=== PATIENT | male | born 1940 | race Caucasian/White ===

== ENCOUNTER 2017-05-22 20:24 | Inpatient (IN) | payer MEDICARE, OTHER ==
[2017-05-23] MEDS: SODIUM CHLORIDE 0.9% 1L BAG IV* (01:35)
[2017-05-23 01:37] LABS: ADD MAN DIFF? NO
[2017-05-23 01:38] LABS: BASOPHILS % 0.2 % (0.0-2.0); EOSINOPHILS # 0.4 10^3/ul (0.0-0.5); EOSINOPHILS % 3.7 % (0.0-7.0); HEMATOCRIT 31.8 % (42.0-52.0); HEMOGLOBIN 9.6 g/dl (14.0-18.0); LYMPHOCYTES # 1.1 10^3/ul (0.8-2.9); LYMPHOCYTES % 10.3 % (15.0-51.0); MEAN CORPUSCULAR HEMOGLOBIN 24.2 pg (29.0-33.0); MEAN CORPUSCULAR HGB CONC 30.2 g/dl (32.0-37.0); MEAN CORPUSCULAR VOLUME 80.3 fl (82.0-101.0); MEAN PLATELET VOLUME 9.9 fl (7.4-10.4); MONOCYTE # 0.8 10^3/ul (0.3-0.9); MONOCYTES % 7.6 % (0.0-11.0); NEUTROPHIL # 8.1 10^3/ul (1.6-7.5); NEUTROPHILS % 77.8 % (39.0-77.0); PLATELET COUNT 213 10^3/UL (140-415); RED BLOOD COUNT 3.96 10^6/ul (4.70-6.10); RED CELL DISTRIBUTION WIDTH 17.8 % (11.5-14.5)
[2017-05-23 01:38] LABS: WHITE BLOOD COUNT 10.5 10^3/ul (4.8-10.8)
[2017-05-23 02:06] LABS: INR 1.04; PROTIME 13.7 Sec (11.9-14.9); PT RATIO 1.1
[2017-05-23 02:07] LABS: PARTIAL THROMBOPLASTIN TIME 30.9 Sec (25.0-35.0)
[2017-05-23 02:18] LABS: LACTIC ACID 1.4 mmol/L (0.5-2.0)
[2017-05-23 02:20] LABS: ALANINE AMINOTRANSFERASE 25 IU/L (13-69); ALBUMIN 3.4 g/dl (3.3-4.9); ALBUMIN/GLOBULIN RATIO 1.03; ALKALINE PHOSPHATASE 61 IU/L (42-121); ANION GAP 15 (8-16); ASPARTATE AMINO TRANSFERASE 20 IU/L (15-46); BLOOD UREA NITROGEN 14 mg/dl (7-20); CALCIUM 8.8 mg/dl (8.4-10.2); CARBON DIOXIDE 23 mmol/L (21-31); CHLORIDE 108 mmol/L (97-110); CREATININE 1.59 mg/dl (0.61-1.24); GLUCOSE 102 mg/dl (70-220); POTASSIUM 3.3 mmol/L (3.5-5.1); SODIUM 143 mmol/L (135-144); TOTAL PROTEIN 6.7 g/dl (6.1-8.1)
[2017-05-23 02:31] LABS: TROPONIN-I 0.084 ng/ml (0.00-0.12)
[2017-05-23 03:25] LABS: ADD UMIC NO; UR ASCORBIC ACID NEGATIVE (NEGATIVE); UR BILIRUBIN (Dip) NEGATIVE (NEGATIVE); UR BLOOD (Dip) NEGATIVE (NEGATIVE); UR CLARITY CLEAR (CLEAR); UR COLOR YELLOW (YELLOW); UR GLUCOSE (Dip) NEGATIVE (NEGATIVE); UR KETONES (Dip) NEGATIVE (NEGATIVE); UR LEUKOCYTE ESTERASE (Dip) NEGATIVE Leu/ul (NEGATIVE); UR NITRITE (Dip) NEGATIVE (NEGATIVE); UR SPECIFIC GRAVITY (Dip) 1.006 (1.003-1.030); UR TOTAL PROTEIN (Dip) NEGATIVE (NEGATIVE); UR UROBILINOGEN (Dip) NEGATIVE (NEGATIVE)
[2017-05-23] MEDS: morphine 4 MG/ML VIAL IV (03:30)
[2017-05-23] MEDS: ONDANSETRON 4 MG INJ IV (03:30)
[2017-05-23] MEDS ORDERED: ACETAMINOPHEN 325 MG TAB PO (06:00)
[2017-05-23] MEDS ORDERED: ONDANSETRON 4 MG INJ IV (06:00)
[2017-05-23 06:27] LABS: LACTIC ACID 0.9 mmol/L (0.5-2.0)
[2017-05-23] MEDS: metroNIDAZOLE 500 MG TAB PO (07:12)
[2017-05-23 07:51] LABS: LACTIC ACID 0.8 mmol/L (0.5-2.0)
[2017-05-23] MEDS: SOD CHLORIDE 0.9% 1,000 ML IV ×2 (08:36→20:22)
[2017-05-23] MEDS ORDERED: GLUCOSE GEL 15 GRAM TUBE PO ×2 (10:30)
[2017-05-23] MEDS ORDERED: GLUCAGON 1 MG INJ IM (10:30)
[2017-05-23] MEDS ORDERED: DEXTROSE 50% 50 ML SYRINGE IV ×2 (10:30)
[2017-05-23] MEDS ORDERED: GLUCOSE GEL 15 GRAM TUBE BUCCAL (10:30)
[2017-05-23] MEDS: POTASSIUM CHLORIDE (SR) 20 MEQ TAB PO (10:59)
[2017-05-23 11:53] LABS: CHOL/HDL RATIO 5.2 RATIO; HDL CHOLESTEROL 21 mg/dl (31-75); LDL CHOLESTEROL,CALCULATED 69 mg/dl; TRIGLYCERIDES 106 mg/dl (0-149)
[2017-05-23 11:53] LABS: CHOLESTEROL 111 mg/dl (100-200)
[2017-05-23 12:09] LABS: FREE T4 (FREE THYROXINE) 0.85 ng/dl (0.85-1.93)
[2017-05-23] MEDS: PANTOPRAZOLE (EC) 40 MG TAB PO (12:09)
[2017-05-23] MEDS: INSULIN ASPART [NOVOLOG] 3 ML PEN SC ×3 (12:09→20:22)
[2017-05-23] MEDS: VANCOMYCIN HCL 250 MG/5ML POSYG PO ×2 (12:25→17:52)
[2017-05-23 15:04] LABS: MAGNESIUM 1.8 mg/dl (1.7-2.5)
[2017-05-23 15:12] LABS: B-TYPE NATRIURETIC PEPTIDE 2040 PG/ML (0-450)
[2017-05-23 19:29] LABS: CREATINE KINASE 63 IU/L (23-200)
[2017-05-23 19:42] LABS: CK INDEX 4.5; TROPONIN-I 0.072 ng/ml (0.00-0.12)
[2017-05-23 19:49] LABS: CK-MB 2.84 ng/ml (0.0-2.4)
[2017-05-24] MEDS: VANCOMYCIN HCL 250 MG/5ML POSYG PO ×4 (00:21→17:46)
[2017-05-24 01:32] LABS: CREATINE KINASE 53 IU/L (23-200)
[2017-05-24 01:45] LABS: CK INDEX 4.4; TROPONIN-I 0.082 ng/ml (0.00-0.12)
[2017-05-24 01:51] LABS: CK-MB 2.34 ng/ml (0.0-2.4)
[2017-05-24] MEDS: ACCU-CHEK XX (02:00)
[2017-05-24] MEDS: PANTOPRAZOLE (EC) 40 MG TAB PO (06:17)
[2017-05-24] MEDS: INSULIN ASPART [NOVOLOG] 3 ML PEN SC ×4 (08:00→20:57)
[2017-05-24 08:22] LABS: CREATINE KINASE 49 IU/L (23-200)
[2017-05-24 08:22] LABS: MAGNESIUM 1.8 mg/dl (1.7-2.5)
[2017-05-24 08:28] LABS: ALANINE AMINOTRANSFERASE 27 IU/L (13-69); ALBUMIN 2.8 g/dl (3.3-4.9); ALBUMIN/GLOBULIN RATIO 0.93; ALKALINE PHOSPHATASE 60 IU/L (42-121); ANION GAP 11 (8-16); ASPARTATE AMINO TRANSFERASE 15 IU/L (15-46); BLOOD UREA NITROGEN 12 mg/dl (7-20); CALCIUM 8.4 mg/dl (8.4-10.2); CARBON DIOXIDE 20 mmol/L (21-31); CHLORIDE 112 mmol/L (97-110); CREATININE 1.38 mg/dl (0.61-1.24); GLUCOSE 81 mg/dl (70-220); POTASSIUM 3.9 mmol/L (3.5-5.1); SODIUM 139 mmol/L (135-144); TOTAL PROTEIN 5.8 g/dl (6.1-8.1)
[2017-05-24 08:34] LABS: CK INDEX 4.9; TROPONIN-I 0.069 ng/ml (0.00-0.12)
[2017-05-24 08:50] LABS: CK-MB 2.42 ng/ml (0.0-2.4)
[2017-05-24] MEDS: METOPROLOL (XL) 25 MG TAB PO (09:21)
[2017-05-24 09:24] LABS: CHOLESTEROL 108 mg/dl (100-200)
[2017-05-24 09:24] LABS: CHOL/HDL RATIO 5.4 RATIO; HDL CHOLESTEROL 20 mg/dl (31-75); LDL CHOLESTEROL,CALCULATED 66 mg/dl; TRIGLYCERIDES 109 mg/dl (0-149)
[2017-05-24] MEDS: SOD CHLORIDE 0.9% 1,000 ML IV (13:01)
[2017-05-24] MEDS: MAGNESIUM SULFATE 2 GM/50 ML 50 ML IVPB (17:46)
[2017-05-24] MEDS: SOD CHLORIDE 0.45% 1,000 ML IV (17:46)
[2017-05-24] MEDS: CHOLESTYRAMINE 4 GM PACKET PO (17:46)
[2017-05-24] MEDS: L ACIDOPHIL/B LACTIS/B LONGUM CAPSULE PO (20:55)
[2017-05-25] MEDS: VANCOMYCIN HCL 250 MG/5ML POSYG PO ×4 (00:20→17:06)
[2017-05-25] MEDS: ACCU-CHEK XX (02:00)
[2017-05-25] MEDS: PANTOPRAZOLE (EC) 40 MG TAB PO (05:21)
[2017-05-25] MEDS: LEVOTHYROXINE 150 MCG TAB PO (06:35)
[2017-05-25] MEDS: INSULIN ASPART [NOVOLOG] 3 ML PEN SC ×4 (08:00→21:00)
[2017-05-25] MEDS: L ACIDOPHIL/B LACTIS/B LONGUM CAPSULE PO ×2 (08:14→21:24)
[2017-05-25] MEDS: CHOLESTYRAMINE 4 GM PACKET PO (08:14)
[2017-05-25] MEDS: METOPROLOL (XL) 25 MG TAB PO (08:14)
[2017-05-25 08:31] LABS: ADD MAN DIFF? NO
[2017-05-25 08:33] LABS: BASOPHILS % 0.3 % (0.0-2.0); EOSINOPHILS # 0.1 10^3/ul (0.0-0.5); EOSINOPHILS % 1.6 % (0.0-7.0); HEMATOCRIT 29.6 % (42.0-52.0); HEMOGLOBIN 9.2 g/dl (14.0-18.0); LYMPHOCYTES # 0.8 10^3/ul (0.8-2.9); LYMPHOCYTES % 12.6 % (15.0-51.0); MEAN CORPUSCULAR HEMOGLOBIN 24.6 pg (29.0-33.0); MEAN CORPUSCULAR HGB CONC 31.1 g/dl (32.0-37.0); MEAN CORPUSCULAR VOLUME 79.1 fl (82.0-101.0); MEAN PLATELET VOLUME 9.7 fl (7.4-10.4); MONOCYTE # 0.5 10^3/ul (0.3-0.9); MONOCYTES % 7.3 % (0.0-11.0); NEUTROPHIL # 4.9 10^3/ul (1.6-7.5); NEUTROPHILS % 77.7 % (39.0-77.0); PLATELET COUNT 179 10^3/UL (140-415); RED BLOOD COUNT 3.74 10^6/ul (4.70-6.10); RED CELL DISTRIBUTION WIDTH 17.5 % (11.5-14.5)
[2017-05-25 08:33] LABS: WHITE BLOOD COUNT 6.3 10^3/ul (4.8-10.8)
[2017-05-25 08:55] LABS: ANION GAP 11 (8-16); BLOOD UREA NITROGEN 14 mg/dl (7-20); CALCIUM 8.7 mg/dl (8.4-10.2); CARBON DIOXIDE 22 mmol/L (21-31); CHLORIDE 109 mmol/L (97-110); CREATININE 1.41 mg/dl (0.61-1.24); GLUCOSE 94 mg/dl (70-220); POTASSIUM 3.8 mmol/L (3.5-5.1); SODIUM 138 mmol/L (135-144)
[2017-05-25] MEDS: REGADENOSON 0.4 MG/5 ML SYG (10:14)
[2017-05-25] MEDS: SOD CHLORIDE 0.45% 1,000 ML IV ×2 (14:00→21:26)
[2017-05-25] MEDS: BALSAM PERU/CASTOR OIL 60 GM TUBE TOP (15:29)
[2017-05-25] MEDS: LEVOFLOXACIN 500 MG TAB PO (17:06)
[2017-05-25] MEDS ORDERED: MUPIROCIN 2% 22 GM OINT TOP (21:00)
[2017-05-25] MEDS: MUPIROCIN 2% 22 GM OINT TOP (21:24)
[2017-05-26] MEDS: VANCOMYCIN HCL 250 MG/5ML POSYG PO ×4 (00:58→17:20)
[2017-05-26] MEDS: ACCU-CHEK XX (02:00)
[2017-05-26] MEDS: LEVOFLOXACIN 500 MG TAB PO (05:48)
[2017-05-26] MEDS: PANTOPRAZOLE (EC) 40 MG TAB PO (05:48)
[2017-05-26] MEDS: LEVOTHYROXINE 150 MCG TAB PO (06:30)
[2017-05-26] MEDS: INSULIN ASPART [NOVOLOG] 3 ML PEN SC ×4 (08:00→20:33)
[2017-05-26 08:29] LABS: ADD MAN DIFF? NO
[2017-05-26] MEDS: METOPROLOL (XL) 25 MG TAB PO (08:37)
[2017-05-26] MEDS: CHOLESTYRAMINE 4 GM PACKET PO (08:39)
[2017-05-26 08:40] LABS: WHITE BLOOD COUNT 5.7 10^3/ul (4.8-10.8)
[2017-05-26 08:40] LABS: BASOPHILS % 0.2 % (0.0-2.0); EOSINOPHILS # 0.1 10^3/ul (0.0-0.5); EOSINOPHILS % 1.2 % (0.0-7.0); HEMATOCRIT 32.2 % (42.0-52.0); LYMPHOCYTES # 0.8 10^3/ul (0.8-2.9); LYMPHOCYTES % 13.3 % (15.0-51.0); MEAN CORPUSCULAR HEMOGLOBIN 24.4 pg (29.0-33.0); MEAN CORPUSCULAR HGB CONC 31.1 g/dl (32.0-37.0); MEAN CORPUSCULAR VOLUME 78.5 fl (82.0-101.0); MEAN PLATELET VOLUME 10.5 fl (7.4-10.4); MONOCYTE # 0.4 10^3/ul (0.3-0.9); MONOCYTES % 7.5 % (0.0-11.0); NEUTROPHIL # 4.4 10^3/ul (1.6-7.5); NEUTROPHILS % 77.3 % (39.0-77.0); PLATELET COUNT 199 10^3/UL (140-415); RED CELL DISTRIBUTION WIDTH 17.5 % (11.5-14.5)
[2017-05-26] MEDS: L ACIDOPHIL/B LACTIS/B LONGUM CAPSULE PO ×2 (08:40→20:28)
[2017-05-26] MEDS: MUPIROCIN 2% 22 GM OINT TOP ×2 (08:40→20:37)
[2017-05-26] MEDS: BALSAM PERU/CASTOR OIL 60 GM TUBE TOP (08:41)
[2017-05-26 09:05] LABS: ANION GAP 11 (8-16); BLOOD UREA NITROGEN 18 mg/dl (7-20); CALCIUM 9.1 mg/dl (8.4-10.2); CARBON DIOXIDE 24 mmol/L (21-31); CHLORIDE 108 mmol/L (97-110); CREATININE 1.52 mg/dl (0.61-1.24); GLUCOSE 102 mg/dl (70-220); SODIUM 139 mmol/L (135-144)
[2017-05-26] MEDS: CEFAZOLIN 1 GM/50 ML (PMX) 50 ML IVPB (20:29)
[2017-05-27] MEDS: VANCOMYCIN HCL 250 MG/5ML POSYG PO ×4 (00:28→19:15)
[2017-05-27] MEDS: SOD CHLORIDE 0.45% 1,000 ML IV ×2 (01:31→06:00)
[2017-05-27] MEDS: ACCU-CHEK XX (02:00)
[2017-05-27] MEDS: LEVOFLOXACIN 500 MG TAB PO (06:15)
[2017-05-27] MEDS: PANTOPRAZOLE (EC) 40 MG TAB PO (06:15)
[2017-05-27] MEDS: LEVOTHYROXINE 150 MCG TAB PO (06:15)
[2017-05-27] MEDS: INSULIN ASPART [NOVOLOG] 3 ML PEN SC ×4 (08:00→21:00)
[2017-05-27] MEDS: CHOLESTYRAMINE 4 GM PACKET PO (09:00)
[2017-05-27] MEDS: L ACIDOPHIL/B LACTIS/B LONGUM CAPSULE PO ×2 (09:00→22:37)
[2017-05-27] MEDS: METOPROLOL (XL) 25 MG TAB PO (09:00)
[2017-05-27 10:00] LABS: ADD MAN DIFF? NO
[2017-05-27 10:03] LABS: WHITE BLOOD COUNT 9.7 10^3/ul (4.8-10.8)
[2017-05-27 10:03] LABS: BASOPHILS % 0.2 % (0.0-2.0); EOSINOPHILS # 0.1 10^3/ul (0.0-0.5); EOSINOPHILS % 0.7 % (0.0-7.0); HEMATOCRIT 33.7 % (42.0-52.0); HEMOGLOBIN 10.5 g/dl (14.0-18.0); LYMPHOCYTES % 10.1 % (15.0-51.0); MEAN CORPUSCULAR HEMOGLOBIN 24.3 pg (29.0-33.0); MEAN CORPUSCULAR HGB CONC 31.2 g/dl (32.0-37.0); MEAN PLATELET VOLUME 10.2 fl (7.4-10.4); MONOCYTE # 0.5 10^3/ul (0.3-0.9); MONOCYTES % 4.9 % (0.0-11.0); NEUTROPHIL # 8.1 10^3/ul (1.6-7.5); NEUTROPHILS % 83.7 % (39.0-77.0); PLATELET COUNT 201 10^3/UL (140-415); RED BLOOD COUNT 4.32 10^6/ul (4.70-6.10); RED CELL DISTRIBUTION WIDTH 17.5 % (11.5-14.5)
[2017-05-27 10:22] LABS: INR 0.99; PROTIME 13.2 Sec (11.9-14.9)
[2017-05-27 10:33] LABS: ANION GAP 10 (8-16); BLOOD UREA NITROGEN 22 mg/dl (7-20); CALCIUM 9.2 mg/dl (8.4-10.2); CARBON DIOXIDE 26 mmol/L (21-31); CHLORIDE 106 mmol/L (97-110); CREATININE 1.49 mg/dl (0.61-1.24); GLUCOSE 117 mg/dl (70-220); POTASSIUM 4.2 mmol/L (3.5-5.1); SODIUM 138 mmol/L (135-144)
[2017-05-27] MEDS: BALSAM PERU/CASTOR OIL 60 GM TUBE TOP (13:30)
[2017-05-27] MEDS: MUPIROCIN 2% 22 GM OINT TOP ×2 (13:30→21:00)
[2017-05-27] MEDS ORDERED: BUPIVACAINE 0.5% (SDV) 30 ML INJ (14:52)
[2017-05-27] MEDS: POLYMYXIN/BACITRACIN 1L IRRIG IRR (15:00)
[2017-05-27] MEDS ORDERED: ETOMIDATE 20 MG INJ (15:23)
[2017-05-27] MEDS ORDERED: FENTAnyl 50 MCG/ML VIAL (15:23)
[2017-05-27] MEDS ORDERED: MIDAZOLAM 1 MG/ML 2 ML INJ (15:23)
[2017-05-27] MEDS ORDERED: CEFAZOLIN 1 GM/50 ML (PMX) 100 ML IVPB (15:37)
[2017-05-27] MEDS ORDERED: ONDANSETRON 4 MG INJ (16:40)
[2017-05-27] MEDS ORDERED: METOCLOPRAMIDE 10 MG INJ IV (17:00)
[2017-05-27] MEDS ORDERED: IPRATROPIUM (NEB) 0.5 MG/2.5 ML AMP HHN (17:00)
[2017-05-27] MEDS ORDERED: FENTAnyl 50 MCG/ML VIAL IV ×2 (17:00)
[2017-05-27] MEDS ORDERED: HYDROmorphONE (0.2 MG/ML) 10ML SYG IV (17:00)
[2017-05-27] MEDS ORDERED: ONDANSETRON 4 MG INJ IV (17:00)
[2017-05-27] MEDS: CEFAZOLIN 1 GM/50 ML (PMX) 50 ML IVPB ×2 (19:09→22:38)
[2017-05-28] MEDS ORDERED: SOD CHLORIDE 0.9% 1,000 ML IV (00:17)
[2017-05-28] MEDS: VANCOMYCIN HCL 250 MG/5ML POSYG PO ×4 (00:17→17:05)
[2017-05-28] MEDS ORDERED: ONDANSETRON 4 MG INJ IV (00:30)
[2017-05-28] MEDS ORDERED: ACETAMINOPHEN 325 MG TAB PO (00:30)
[2017-05-28] MEDS ORDERED: MECLIZINE 25 MG TAB PO (00:30)
[2017-05-28] MEDS ORDERED: NITROGLYCERIN (SL) 0.4 MG TAB SL (00:30)
[2017-05-28] MEDS ORDERED: CLOPIDOGREL 75 MG TAB PO (00:30)
[2017-05-28] MEDS: ACCU-CHEK XX (02:00)
[2017-05-28] MEDS: SOD CHLORIDE 0.45% 1,000 ML IV ×2 (02:00→22:00)
[2017-05-28] MEDS: PANTOPRAZOLE (EC) 40 MG TAB PO (05:50)
[2017-05-28] MEDS: LEVOFLOXACIN 500 MG TAB PO (05:50)
[2017-05-28] MEDS: CEFAZOLIN 1 GM/50 ML (PMX) 50 ML IVPB ×3 (05:50→21:37)
[2017-05-28] MEDS ORDERED: PANTOPRAZOLE (EC) 40 MG TAB PO (06:00)
[2017-05-28] MEDS ORDERED: LEVOTHYROXINE 150 MCG TAB PO (07:00)
[2017-05-28] MEDS: INSULIN ASPART [NOVOLOG] 3 ML PEN SC ×4 (08:00→21:40)
[2017-05-28] MEDS: L ACIDOPHIL/B LACTIS/B LONGUM CAPSULE PO ×2 (08:49→21:37)
[2017-05-28] MEDS: LISINOPRIL 5 MG TAB PO (08:49)
[2017-05-28] MEDS: LEVOTHYROXINE 150 MCG TAB PO (08:49)
[2017-05-28] MEDS: MUPIROCIN 2% 22 GM OINT TOP ×2 (08:50→21:43)
[2017-05-28] MEDS: BALSAM PERU/CASTOR OIL 60 GM TUBE TOP (08:50)
[2017-05-28] MEDS: METOPROLOL (XL) 25 MG TAB PO (08:50)
[2017-05-28] MEDS ORDERED: DIGOXIN 0.125 MG TAB PO (09:00)
[2017-05-28 12:06] LABS: ADD MAN DIFF? NO
[2017-05-28 12:12] LABS: WHITE BLOOD COUNT 9.3 10^3/ul (4.8-10.8)
[2017-05-28 12:12] LABS: BASOPHILS % 0.2 % (0.0-2.0); EOSINOPHILS # 0.1 10^3/ul (0.0-0.5); EOSINOPHILS % 1.1 % (0.0-7.0); HEMATOCRIT 35.9 % (42.0-52.0); LYMPHOCYTES # 0.9 10^3/ul (0.8-2.9); LYMPHOCYTES % 10.1 % (15.0-51.0); MEAN CORPUSCULAR HEMOGLOBIN 24.1 pg (29.0-33.0); MEAN CORPUSCULAR HGB CONC 30.6 g/dl (32.0-37.0); MEAN CORPUSCULAR VOLUME 78.7 fl (82.0-101.0); MEAN PLATELET VOLUME 10.5 fl (7.4-10.4); MONOCYTE # 0.6 10^3/ul (0.3-0.9); MONOCYTES % 6.3 % (0.0-11.0); NEUTROPHIL # 7.6 10^3/ul (1.6-7.5); NEUTROPHILS % 81.8 % (39.0-77.0); PLATELET COUNT 197 10^3/UL (140-415); RED BLOOD COUNT 4.56 10^6/ul (4.70-6.10); RED CELL DISTRIBUTION WIDTH 17.8 % (11.5-14.5)
[2017-05-28 12:34] LABS: ANION GAP 10 (8-16); BLOOD UREA NITROGEN 25 mg/dl (7-20); CALCIUM 9.3 mg/dl (8.4-10.2); CARBON DIOXIDE 27 mmol/L (21-31); CHLORIDE 105 mmol/L (97-110); CREATININE 1.48 mg/dl (0.61-1.24); GLUCOSE 147 mg/dl (70-220); POTASSIUM 4.4 mmol/L (3.5-5.1); SODIUM 138 mmol/L (135-144)
[2017-05-28] MEDS: morphine 2 MG INJ IV (18:36)
[2017-05-28] MEDS: ATORVASTATIN 80 MG TAB PO (21:36)
[2017-05-28] MEDS: MIRTAZAPINE 15 MG TAB PO (21:37)
[2017-05-29] MEDS: ACCU-CHEK XX (02:00)
[2017-05-29] MEDS: LEVOFLOXACIN 500 MG TAB PO (05:17)
[2017-05-29] MEDS: VANCOMYCIN HCL 250 MG/5ML POSYG PO ×5 (05:17→23:58)
[2017-05-29] MEDS: PANTOPRAZOLE (EC) 40 MG TAB PO (05:17)
[2017-05-29] MEDS: CEFAZOLIN 1 GM/50 ML (PMX) 50 ML IVPB ×3 (05:22→21:05)
[2017-05-29 08:15] LABS: ADD MAN DIFF? NO
[2017-05-29 08:21] LABS: WHITE BLOOD COUNT 10.9 10^3/ul (4.8-10.8)
[2017-05-29 08:21] LABS: BASOPHILS % 0.3 % (0.0-2.0); EOSINOPHILS # 0.3 10^3/ul (0.0-0.5); EOSINOPHILS % 2.5 % (0.0-7.0); HEMATOCRIT 35.7 % (42.0-52.0); HEMOGLOBIN 10.9 g/dl (14.0-18.0); LYMPHOCYTES # 1.1 10^3/ul (0.8-2.9); MEAN CORPUSCULAR HEMOGLOBIN 24.1 pg (29.0-33.0); MEAN CORPUSCULAR HGB CONC 30.5 g/dl (32.0-37.0); MONOCYTE # 0.7 10^3/ul (0.3-0.9); MONOCYTES % 6.4 % (0.0-11.0); NEUTROPHIL # 8.8 10^3/ul (1.6-7.5); NEUTROPHILS % 80.3 % (39.0-77.0); PLATELET COUNT 188 10^3/UL (140-415); RED BLOOD COUNT 4.52 10^6/ul (4.70-6.10); RED CELL DISTRIBUTION WIDTH 17.6 % (11.5-14.5)
[2017-05-29] MEDS: L ACIDOPHIL/B LACTIS/B LONGUM CAPSULE PO ×2 (09:01→21:05)
[2017-05-29] MEDS: LEVOTHYROXINE 150 MCG TAB PO (09:01)
[2017-05-29] MEDS: LINAGLIPTIN 5 MG TABLET PO (09:01)
[2017-05-29] MEDS: INSULIN ASPART [NOVOLOG] 3 ML PEN SC ×4 (09:02→21:00)
[2017-05-29] MEDS: LISINOPRIL 5 MG TAB PO (09:02)
[2017-05-29] MEDS: BALSAM PERU/CASTOR OIL 60 GM TUBE TOP (09:03)
[2017-05-29] MEDS: MUPIROCIN 2% 22 GM OINT TOP ×2 (09:03→21:05)
[2017-05-29] MEDS: METOPROLOL (XL) 25 MG TAB PO (09:03)
[2017-05-29 09:10] LABS: ANION GAP 13 (8-16); BLOOD UREA NITROGEN 27 mg/dl (7-20); CALCIUM 9.1 mg/dl (8.4-10.2); CARBON DIOXIDE 22 mmol/L (21-31); CHLORIDE 110 mmol/L (97-110); CREATININE 1.62 mg/dl (0.61-1.24); GLUCOSE 127 mg/dl (70-220); POTASSIUM 4.4 mmol/L (3.5-5.1); SODIUM 141 mmol/L (135-144)
[2017-05-29] MEDS: morphine 2 MG INJ IV (13:36)
[2017-05-29] MEDS: SOD CHLORIDE 0.45% 1,000 ML IV ×2 (17:22→23:59)
[2017-05-29] MEDS: ATORVASTATIN 80 MG TAB PO (21:05)
[2017-05-29] MEDS: MIRTAZAPINE 15 MG TAB PO (21:05)
[2017-05-30] MEDS: ACCU-CHEK XX (02:00)
[2017-05-30] MEDS: CEFAZOLIN 1 GM/50 ML (PMX) 50 ML IVPB ×3 (05:26→22:23)
[2017-05-30] MEDS: VANCOMYCIN HCL 250 MG/5ML POSYG PO ×3 (05:27→17:00)
[2017-05-30] MEDS: PANTOPRAZOLE (EC) 40 MG TAB PO (05:27)
[2017-05-30] MEDS: LEVOFLOXACIN 500 MG TAB PO (05:27)
[2017-05-30] MEDS: LEVOTHYROXINE 150 MCG TAB PO ×2 (06:31→08:32)
[2017-05-30 07:25] LABS: ANION GAP 13 (8-16); BLOOD UREA NITROGEN 32 mg/dl (7-20); CALCIUM 9.1 mg/dl (8.4-10.2); CARBON DIOXIDE 22 mmol/L (21-31); CHLORIDE 109 mmol/L (97-110); CREATININE 1.67 mg/dl (0.61-1.24); GLUCOSE 129 mg/dl (70-220); SODIUM 140 mmol/L (135-144)
[2017-05-30] MEDS: INSULIN ASPART [NOVOLOG] 3 ML PEN SC ×4 (08:00→20:46)
[2017-05-30] MEDS: L ACIDOPHIL/B LACTIS/B LONGUM CAPSULE PO ×2 (08:32→20:46)
[2017-05-30] MEDS: METOPROLOL (XL) 25 MG TAB PO (08:32)
[2017-05-30] MEDS: LISINOPRIL 5 MG TAB PO (08:32)
[2017-05-30] MEDS: LINAGLIPTIN 5 MG TABLET PO (08:32)
[2017-05-30] MEDS: MUPIROCIN 2% 22 GM OINT TOP ×2 (08:33→20:47)
[2017-05-30] MEDS: BALSAM PERU/CASTOR OIL 60 GM TUBE TOP (08:33)
[2017-05-30] MEDS ORDERED: SOD CHLORIDE 0.9% 1,000 ML IV (15:00)
[2017-05-30] MEDS: SOD CHLORIDE 0.45% 1,000 ML IV (17:22)
[2017-05-30] MEDS: ATORVASTATIN 80 MG TAB PO (20:46)
[2017-05-30] MEDS: MIRTAZAPINE 15 MG TAB PO (20:49)
[2017-05-31] MEDS: VANCOMYCIN HCL 250 MG/5ML POSYG PO ×5 (00:06→23:42)
[2017-05-31] MEDS: ACCU-CHEK XX (01:56)
[2017-05-31] MEDS: LEVOFLOXACIN 500 MG TAB PO (05:25)
[2017-05-31] MEDS: CEFAZOLIN 1 GM/50 ML (PMX) 50 ML IVPB (05:25)
[2017-05-31] MEDS: PANTOPRAZOLE (EC) 40 MG TAB PO (05:25)
[2017-05-31 07:40] LABS: ADD MAN DIFF? NO
[2017-05-31 07:46] LABS: BASOPHILS % 0.2 % (0.0-2.0); EOSINOPHILS # 0.3 10^3/ul (0.0-0.5); EOSINOPHILS % 3.2 % (0.0-7.0); HEMATOCRIT 32.5 % (42.0-52.0); MEAN CORPUSCULAR HEMOGLOBIN 24.4 pg (29.0-33.0); MEAN CORPUSCULAR HGB CONC 30.8 g/dl (32.0-37.0); MEAN CORPUSCULAR VOLUME 79.3 fl (82.0-101.0); MONOCYTE # 0.8 10^3/ul (0.3-0.9); MONOCYTES % 9.5 % (0.0-11.0); NEUTROPHIL # 6.3 10^3/ul (1.6-7.5); NEUTROPHILS % 74.5 % (39.0-77.0); PLATELET COUNT 143 10^3/UL (140-415); RED CELL DISTRIBUTION WIDTH 17.5 % (11.5-14.5)
[2017-05-31 07:46] LABS: WHITE BLOOD COUNT 8.4 10^3/ul (4.8-10.8)
[2017-05-31] MEDS: INSULIN ASPART [NOVOLOG] 3 ML PEN SC ×4 (08:00→20:28)
[2017-05-31 08:09] LABS: ANION GAP 12 (8-16); BLOOD UREA NITROGEN 30 mg/dl (7-20); CALCIUM 9.1 mg/dl (8.4-10.2); CARBON DIOXIDE 24 mmol/L (21-31); CHLORIDE 107 mmol/L (97-110); CREATININE 1.55 mg/dl (0.61-1.24); GLUCOSE 110 mg/dl (70-220); POTASSIUM 4.5 mmol/L (3.5-5.1); SODIUM 138 mmol/L (135-144)
[2017-05-31] MEDS: METOPROLOL (XL) 25 MG TAB PO (09:00)
[2017-05-31] MEDS: LINAGLIPTIN 5 MG TABLET PO (09:17)
[2017-05-31] MEDS: L ACIDOPHIL/B LACTIS/B LONGUM CAPSULE PO ×2 (09:17→20:28)
[2017-05-31] MEDS: LISINOPRIL 5 MG TAB PO (09:17)
[2017-05-31] MEDS: BALSAM PERU/CASTOR OIL 60 GM TUBE TOP (09:18)
[2017-05-31] MEDS: MUPIROCIN 2% 22 GM OINT TOP ×2 (09:18→20:29)
[2017-05-31] MEDS: ATORVASTATIN 80 MG TAB PO (20:28)
[2017-05-31] MEDS: MIRTAZAPINE 15 MG TAB PO (20:28)
[2017-06-01] MEDS: ACCU-CHEK XX (01:03)
[2017-06-01] MEDS: SOD CHLORIDE 0.45% 1,000 ML IV (05:56)
[2017-06-01] MEDS: PANTOPRAZOLE (EC) 40 MG TAB PO (05:58)
[2017-06-01] MEDS: VANCOMYCIN HCL 250 MG/5ML POSYG PO ×3 (05:58→17:25)
[2017-06-01] MEDS: LEVOTHYROXINE 150 MCG TAB PO (06:01)
[2017-06-01 07:42] LABS: ADD MAN DIFF? NO
[2017-06-01 07:44] LABS: WHITE BLOOD COUNT 7.5 10^3/ul (4.8-10.8)
[2017-06-01 07:44] LABS: ABNORMAL IP MESSAGE 1; BASOPHILS % 0.3 % (0.0-2.0); EOSINOPHILS # 0.3 10^3/ul (0.0-0.5); EOSINOPHILS % 4.2 % (0.0-7.0); HEMATOCRIT 32.5 % (42.0-52.0); LYMPHOCYTES % 13.8 % (15.0-51.0); MEAN CORPUSCULAR HEMOGLOBIN 24.3 pg (29.0-33.0); MEAN CORPUSCULAR HGB CONC 30.8 g/dl (32.0-37.0); MEAN CORPUSCULAR VOLUME 79.1 fl (82.0-101.0); MEAN PLATELET VOLUME 11.3 fl (7.4-10.4); MONOCYTE # 0.8 10^3/ul (0.3-0.9); MONOCYTES % 10.2 % (0.0-11.0); NEUTROPHIL # 5.3 10^3/ul (1.6-7.5); NEUTROPHILS % 70.8 % (39.0-77.0); PLATELET COUNT 146 10^3/UL (140-415); POSITIVE DIFF @See below; RED BLOOD COUNT 4.11 10^6/ul (4.70-6.10); RED CELL DISTRIBUTION WIDTH 17.2 % (11.5-14.5)
[2017-06-01] MEDS: INSULIN ASPART [NOVOLOG] 3 ML PEN SC ×4 (08:00→21:27)
[2017-06-01 08:16] LABS: ANION GAP 12 (8-16); BLOOD UREA NITROGEN 32 mg/dl (7-20); CALCIUM 9.1 mg/dl (8.4-10.2); CARBON DIOXIDE 24 mmol/L (21-31); CHLORIDE 108 mmol/L (97-110); CREATININE 1.62 mg/dl (0.61-1.24); GLUCOSE 121 mg/dl (70-220); POTASSIUM 4.5 mmol/L (3.5-5.1); SODIUM 139 mmol/L (135-144)
[2017-06-01] MEDS: METOPROLOL (XL) 25 MG TAB PO (08:53)
[2017-06-01] MEDS: LINAGLIPTIN 5 MG TABLET PO (08:54)
[2017-06-01] MEDS: L ACIDOPHIL/B LACTIS/B LONGUM CAPSULE PO ×2 (08:54→21:19)
[2017-06-01] MEDS: LISINOPRIL 5 MG TAB PO (08:54)
[2017-06-01] MEDS: BALSAM PERU/CASTOR OIL 60 GM TUBE TOP (08:55)
[2017-06-01] MEDS: MUPIROCIN 2% 22 GM OINT TOP ×2 (08:55→21:20)
[2017-06-01] MEDS: MIRTAZAPINE 15 MG TAB PO (21:19)
[2017-06-01] MEDS: ATORVASTATIN 80 MG TAB PO (21:19)
[2017-06-02] MEDS: VANCOMYCIN HCL 250 MG/5ML POSYG PO ×4 (00:48→17:36)
[2017-06-02] MEDS: SOD CHLORIDE 0.45% 1,000 ML IV (02:04)
[2017-06-02] MEDS: ACCU-CHEK XX (02:43)
[2017-06-02] MEDS: LEVOTHYROXINE 150 MCG TAB PO (06:14)
[2017-06-02] MEDS: PANTOPRAZOLE (EC) 40 MG TAB PO (06:14)
[2017-06-02] MEDS: INSULIN ASPART [NOVOLOG] 3 ML PEN SC ×3 (07:55→17:37)
[2017-06-02] MEDS: METOPROLOL (XL) 25 MG TAB PO (09:13)
[2017-06-02] MEDS: LINAGLIPTIN 5 MG TABLET PO (09:13)
[2017-06-02] MEDS: LISINOPRIL 5 MG TAB PO (09:13)
[2017-06-02] MEDS: MUPIROCIN 2% 22 GM OINT TOP (09:16)
[2017-06-02] MEDS: BALSAM PERU/CASTOR OIL 60 GM TUBE TOP (09:16)
[2017-06-02] MEDS: L ACIDOPHIL/B LACTIS/B LONGUM CAPSULE PO (09:25)
[2017-06-02 09:51] LABS: ADD MAN DIFF? NO
[2017-06-02 09:59] LABS: WHITE BLOOD COUNT 7.8 10^3/ul (4.8-10.8)
[2017-06-02 09:59] LABS: BASOPHILS % 0.3 % (0.0-2.0); EOSINOPHILS # 0.4 10^3/ul (0.0-0.5); EOSINOPHILS % 4.8 % (0.0-7.0); HEMATOCRIT 32.8 % (42.0-52.0); HEMOGLOBIN 10.1 g/dl (14.0-18.0); LYMPHOCYTES # 0.9 10^3/ul (0.8-2.9); LYMPHOCYTES % 11.1 % (15.0-51.0); MEAN CORPUSCULAR HEMOGLOBIN 24.5 pg (29.0-33.0); MEAN CORPUSCULAR HGB CONC 30.8 g/dl (32.0-37.0); MEAN CORPUSCULAR VOLUME 79.4 fl (82.0-101.0); MONOCYTE # 0.7 10^3/ul (0.3-0.9); MONOCYTES % 8.7 % (0.0-11.0); NEUTROPHIL # 5.8 10^3/ul (1.6-7.5); NEUTROPHILS % 74.6 % (39.0-77.0); PLATELET COUNT 148 10^3/UL (140-415); RED BLOOD COUNT 4.13 10^6/ul (4.70-6.10); RED CELL DISTRIBUTION WIDTH 17.7 % (11.5-14.5)
[2017-06-02 10:17] LABS: ANION GAP 12 (8-16)
[2017-06-02 10:18] LABS: BLOOD UREA NITROGEN 32 mg/dl (7-20); CALCIUM 8.5 mg/dl (8.4-10.2); CARBON DIOXIDE 25 mmol/L (21-31); CHLORIDE 109 mmol/L (97-110); CREATININE 1.56 mg/dl (0.61-1.24); GLUCOSE 126 mg/dl (70-220); POTASSIUM 4.1 mmol/L (3.5-5.1); SODIUM 142 mmol/L (135-144)
== END 2017-06-02 20:30 | disposition home or self-care (01) | DRG 227 ==
LOC: E/R 20:24 → MS2 05-23 05:38 → MS4 05-23 15:33
PROC: 0JH608Z Insertion of Defibrillator Generator into Chest Subcutaneous Tissue and Fascia, Open Approach (ICD-10-PCS; principal; 2017-05-27 15:00)
PROC: 02HK3KZ Insertion of Defibrillator Lead into Right Ventricle, Percutaneous Approach (ICD-10-PCS; 2017-05-27 15:00)
PROC: C22G1ZZ Tomographic (Tomo) Nuclear Medicine Imaging of Myocardium using Technetium 99m (Tc-99m) (ICD-10-PCS; 2017-05-27 15:19)
PROC: 4A02XM4 Measurement of Cardiac Total Activity, External Approach (ICD-10-PCS; 2017-05-27 15:19)
PROC: 3E033HZ Introduction of Radioactive Substance into Peripheral Vein, Percutaneous Approach (ICD-10-PCS; 2017-05-27 15:19)
DX: I25.5 Ischemic cardiomyopathy (principal); N17.9 Acute kidney failure, unspecified; A04.71 Enterocolitis due to Clostridium difficile, recurrent; I95.9 Hypotension, unspecified; E11.22 Type 2 diabetes mellitus with diabetic chronic kidney disease; E11.42 Type 2 diabetes mellitus with diabetic polyneuropathy; R00.1 Bradycardia, unspecified; N39.0 Urinary tract infection, site not specified; I49.3 Ventricular premature depolarization; Z90.49 Acquired absence of other specified parts of digestive tract; J44.9 Chronic obstructive pulmonary disease, unspecified; N18.3 Chronic kidney disease, stage 3 (moderate); E86.0 Dehydration; I25.10 Atherosclerotic heart disease of native coronary artery without angina pectoris; E87.6 Hypokalemia; I12.9 Hypertensive chronic kidney disease with stage 1 through stage 4 chronic kidney disease, or unspecified chronic kidney disease; F31.9 Bipolar disorder, unspecified; G47.30 Sleep apnea, unspecified; E78.5 Hyperlipidemia, unspecified; Z95.5 Presence of coronary angioplasty implant and graft; Z95.2 Presence of prosthetic heart valve; F17.210 Nicotine dependence, cigarettes, uncomplicated; B96.20 Unspecified Escherichia coli [E. coli] as the cause of diseases classified elsewhere; Z86.73 Personal history of transient ischemic attack (TIA), and cerebral infarction without residual deficits; Z95.1 Presence of aortocoronary bypass graft; I25.2 Old myocardial infarction; Z22.322 Carrier or suspected carrier of Methicillin resistant Staphylococcus aureus
CPT/HCPCS: 33249; 36415; 71045; 78452; 80048; 80053; 80061; 81003; 82550; 82553; 82962; 83036; 83605; 83735; 83880; 84439; 84443; 84484; 85025; 85610; 85730; 87040; 87045; 87075; 87081; 87086; 93005; 93017; 96374; 96375; 97110; 97116; 97162; 99285-25

== ENCOUNTER 2018-03-14 07:43 | Inpatient (IN) | payer MEDICARE, OTHER ==
[2018-03-14 08:54] LABS: WHITE BLOOD COUNT 9.5 10^3/ul (4.8-10.8)
[2018-03-14 08:54] LABS: ABNORMAL IP MESSAGE 1; HEMATOCRIT 22.3 % (42.0-52.0); MEAN CORPUSCULAR HGB CONC 27.8 g/dl (32.0-37.0); MEAN CORPUSCULAR VOLUME 86.4 fl (82.0-101.0); MEAN PLATELET VOLUME 10.9 fl (7.4-10.4); NUCLEATED RED BLOOD CELLS% 0.2 /100WBC (0.0-0.0); PLATELET COUNT 262 10^3/UL (140-415); POSITIVE DIFF @See below; RED BLOOD COUNT 2.58 10^6/ul (4.70-6.10); RED CELL DISTRIBUTION WIDTH 18.4 % (11.5-14.5)
[2018-03-14 08:58] LABS: ADD MAN DIFF? YES; HEMOGLOBIN 6.2 g/dl (14.0-18.0); PATH REVIEW? YES
[2018-03-14 09:06] LABS: ADD UMIC YES; UR ASCORBIC ACID NEGATIVE (NEGATIVE); UR BILIRUBIN (Dip) NEGATIVE (NEGATIVE); UR BLOOD (Dip) NEGATIVE (NEGATIVE); UR CLARITY CLEAR (CLEAR); UR COLOR YELLOW (YELLOW); UR GLUCOSE (Dip) NEGATIVE (NEGATIVE); UR KETONES (Dip) NEGATIVE (NEGATIVE); UR LEUKOCYTE ESTERASE (Dip) TRACE Leu/ul (NEGATIVE); UR NITRITE (Dip) NEGATIVE (NEGATIVE); UR RBC 1 /HPF (0-5); UR SPECIFIC GRAVITY (Dip) 1.016 (1.003-1.030); UR TOTAL PROTEIN (Dip) NEGATIVE (NEGATIVE); UR UROBILINOGEN (Dip) NEGATIVE (NEGATIVE); UR WBC 5 /HPF (0-5)
[2018-03-14 09:11] LABS: IRON 37 ug/dl (35-150)
[2018-03-14 09:13] LABS: ALANINE AMINOTRANSFERASE 13 IU/L (13-69); ALBUMIN 3.6 g/dl (3.3-4.9); ALBUMIN/GLOBULIN RATIO 1.33; ALKALINE PHOSPHATASE 64 IU/L (42-121); ANION GAP 11 (5-13); ASPARTATE AMINO TRANSFERASE 14 IU/L (15-46); BLOOD UREA NITROGEN 24 mg/dl (7-20); CALCIUM 9.2 mg/dl (8.4-10.2); CARBON DIOXIDE 22 mmol/L (21-31); CHLORIDE 110 mmol/L (97-110); CREATININE 1.65 mg/dl (0.61-1.24); GLUCOSE 132 mg/dl (70-220); LACTATE DEHYDROGENASE 306 IU/L (313-618); POTASSIUM 4.3 mmol/L (3.5-5.1); SODIUM 143 mmol/L (135-144); TOTAL PROTEIN 6.3 g/dl (6.1-8.1)
[2018-03-14 09:20] LABS: % IRON SATURATION 9 % SAT (22-52); TOTAL IRON BINDING CAPACITY 391 ug/dl (241-421)
[2018-03-14] MEDS ORDERED: ONDANSETRON 4 MG INJ IV (09:30)
[2018-03-14] MEDS ORDERED: ACETAMINOPHEN 325 MG TAB PO (09:30)
[2018-03-14 09:39] LABS: ANISOCYTOSIS 2+ (0-0); BURR CELLS 2+ (0-0); LYMPHOCYTES #M 1.5 10^3/ul (0.8-2.9); LYMPHOCYTES % (M) 16 % (15-51); MICROCYTOSIS 2+ (0-0); MONOCYTE #M 0.1 10^3/ul (0.3-0.9); MONOCYTES % (M) 2 % (0-11); OVALOCYTES 1+ (0-0); PLATELET ESTIMATE NORMAL; POIKILOCYTOSIS 2+ (0-0); POLYCHROMASIA 3+ (0-0); SCHISTOCYTES 1+ (0-0); SEGMENTED NEUTROPHILS (M) % 82 % (39-77); SMUDGE%M 2 % (0-0)
[2018-03-14 09:48] LABS: FERRITIN 5.2 ng/ml (11.1-264.0)
[2018-03-14 13:51] LABS: IMMEDIATE SPIN CROSSMATCH 1 3
[2018-03-14 20:42] LABS: CREATINE KINASE 41 IU/L (23-200)
[2018-03-14 20:56] LABS: CK INDEX 2.5; CK-MB 1.04 ng/ml (0.0-2.4); TROPONIN-I 0.078 ng/ml (0.000-0.120)
[2018-03-14] MEDS ORDERED: GLUCOSE GEL 15 GRAM TUBE BUCCAL (23:00)
[2018-03-14] MEDS ORDERED: GLUCAGON 1 MG INJ IM (23:00)
[2018-03-14] MEDS ORDERED: DEXTROSE 50% 50 ML SYRINGE IV ×2 (23:00)
[2018-03-14] MEDS ORDERED: GLUCOSE GEL 15 GRAM TUBE PO ×2 (23:00)
[2018-03-15 00:57] LABS: CREATINE KINASE 39 IU/L (23-200)
[2018-03-15 01:10] LABS: CK INDEX 2.7; CK-MB 1.06 ng/ml (0.0-2.4); TROPONIN-I 0.082 ng/ml (0.000-0.120)
[2018-03-15] MEDS: ACCU-CHEK XX (02:00)
[2018-03-15] MEDS: LEVOTHYROXINE 150 MCG TAB PO (06:35)
[2018-03-15] MEDS: PANTOPRAZOLE (EC) 40 MG TAB PO (06:35)
[2018-03-15 06:39] LABS: ADD MAN DIFF? NO
[2018-03-15 06:50] LABS: BASOPHILS % 0.2 % (0.0-2.0); EOSINOPHILS # 0.2 10^3/ul (0.0-0.5); EOSINOPHILS % 1.9 % (0.0-7.0); HEMATOCRIT 25.2 % (42.0-52.0); HEMOGLOBIN 7.6 g/dl (14.0-18.0); LYMPHOCYTES # 1.2 10^3/ul (0.8-2.9); LYMPHOCYTES % 15.4 % (15.0-51.0); MEAN CORPUSCULAR HEMOGLOBIN 25.9 pg (29.0-33.0); MEAN CORPUSCULAR HGB CONC 30.2 g/dl (32.0-37.0); MEAN PLATELET VOLUME 10.3 fl (7.4-10.4); MONOCYTE # 0.7 10^3/ul (0.3-0.9); MONOCYTES % 8.4 % (0.0-11.0); NEUTROPHIL # 5.9 10^3/ul (1.6-7.5); NEUTROPHILS % 73.6 % (39.0-77.0); PLATELET COUNT 214 10^3/UL (140-415); RED BLOOD COUNT 2.93 10^6/ul (4.70-6.10); RED CELL DISTRIBUTION WIDTH 18.1 % (11.5-14.5)
[2018-03-15 07:19] LABS: ANION GAP 9 (5-13); BLOOD UREA NITROGEN 24 mg/dl (7-20); CALCIUM 9.1 mg/dl (8.4-10.2); CARBON DIOXIDE 22 mmol/L (21-31); CHLORIDE 112 mmol/L (97-110); CREATININE 1.56 mg/dl (0.61-1.24); GLUCOSE 115 mg/dl (70-220); POTASSIUM 4.5 mmol/L (3.5-5.1); SODIUM 143 mmol/L (135-144)
[2018-03-15 07:22] LABS: CREATINE KINASE 33 IU/L (23-200)
[2018-03-15 07:23] LABS: CK INDEX 2.9; CK-MB 0.96 ng/ml (0.0-2.4); TROPONIN-I 0.091 ng/ml (0.000-0.120)
[2018-03-15] MEDS: GLIMEPIRIDE 2 MG TAB PO (07:55)
[2018-03-15] MEDS: INSULIN ASPART [NOVOLOG] 3 ML PEN SC ×4 (07:55→20:08)
[2018-03-15] MEDS: FUROSEMIDE 20 MG TAB PO (08:56)
[2018-03-15] MEDS: LISINOPRIL 5 MG TAB PO (08:58)
[2018-03-15 09:27] LABS: INR 1.05; PROTIME 13.8 Sec (11.9-14.9); PT RATIO 1.1
[2018-03-15 09:28] LABS: PARTIAL THROMBOPLASTIN TIME 31.5 Sec (23.0-35.0)
[2018-03-15] MEDS: SOD CHLORIDE 0.9% 250 ML IV* (14:03)
[2018-03-15 14:52] LABS: TRANSFERRIN 283 mg/dL (188-341)
[2018-03-15] MEDS: SOD FERRIC GLUC COMPLX 125 MG in SOD CHLORIDE 0.9% 100 ML IVPB (17:08)
[2018-03-15 17:22] LABS: CREATININE,URINE RANDOM 21.91 mg/dl (20-370)
[2018-03-15 17:47] LABS: SODIUM,URINE RANDOM 153 mmol/L (30-90)
[2018-03-15] MEDS: ATORVASTATIN 80 MG TAB PO (20:05)
[2018-03-15 23:21] LABS: RETICULOCYTE RBC 3.23
[2018-03-15 23:21] LABS: RETICULOCYTE COUNT % 2.5 % (0.5-1.5)
[2018-03-15 23:35] LABS: LACTATE DEHYDROGENASE 308 IU/L (313-618)
[2018-03-16 00:40] LABS: FOLATE 7.1 ng/ml (2.8-20.0)
[2018-03-16] MEDS: ACCU-CHEK XX (02:00)
[2018-03-16] MEDS: LEVOTHYROXINE 150 MCG TAB PO (05:49)
[2018-03-16] MEDS: PANTOPRAZOLE (EC) 40 MG TAB PO (05:49)
[2018-03-16] MEDS: INSULIN ASPART [NOVOLOG] 3 ML PEN SC ×4 (07:55→21:00)
[2018-03-16] MEDS: GLIMEPIRIDE 2 MG TAB PO (08:06)
[2018-03-16] MEDS: LISINOPRIL 5 MG TAB PO (08:07)
[2018-03-16] MEDS: FUROSEMIDE 20 MG TAB PO (08:07)
[2018-03-16 10:08] LABS: ADD MAN DIFF? NO
[2018-03-16 10:11] LABS: BASOPHILS % 0.1 % (0.0-2.0); EOSINOPHILS # 0.1 10^3/ul (0.0-0.5); EOSINOPHILS % 1.6 % (0.0-7.0); HEMATOCRIT 28.1 % (42.0-52.0); HEMOGLOBIN 8.4 g/dl (14.0-18.0); LYMPHOCYTES # 0.7 10^3/ul (0.8-2.9); LYMPHOCYTES % 7.8 % (15.0-51.0); MEAN CORPUSCULAR HEMOGLOBIN 25.3 pg (29.0-33.0); MEAN CORPUSCULAR HGB CONC 29.9 g/dl (32.0-37.0); MEAN CORPUSCULAR VOLUME 84.6 fl (82.0-101.0); MEAN PLATELET VOLUME 10.6 fl (7.4-10.4); MONOCYTE # 0.4 10^3/ul (0.3-0.9); MONOCYTES % 3.9 % (0.0-11.0); NEUTROPHIL # 7.7 10^3/ul (1.6-7.5); NEUTROPHILS % 85.9 % (39.0-77.0); PLATELET COUNT 194 10^3/UL (140-415); RED BLOOD COUNT 3.32 10^6/ul (4.70-6.10); RED CELL DISTRIBUTION WIDTH 17.4 % (11.5-14.5)
[2018-03-16 10:30] LABS: ANION GAP 10 (5-13); BLOOD UREA NITROGEN 29 mg/dl (7-20); CALCIUM 8.5 mg/dl (8.4-10.2); CARBON DIOXIDE 25 mmol/L (21-31); CHLORIDE 102 mmol/L (97-110); CREATININE 1.75 mg/dl (0.61-1.24); GLUCOSE 206 mg/dl (70-220); SODIUM 137 mmol/L (135-144)
[2018-03-16 10:31] LABS: CREATINE KINASE 36 IU/L (23-200)
[2018-03-16 10:31] LABS: URIC ACID 8.5 mg/dl (3.1-7.9)
[2018-03-16] MEDS ORDERED: MIDAZOLAM 1 MG/ML 2 ML INJ (10:47)
[2018-03-16] MEDS ORDERED: PROPOFOL 20 ML (10:47)
[2018-03-16] MEDS ORDERED: FENTAnyl 50 MCG/ML VIAL (10:47)
[2018-03-16] MEDS: SOD FERRIC GLUC COMPLX 125 MG in SOD CHLORIDE 0.9% 100 ML IVPB (17:14)
[2018-03-16] MEDS: ATORVASTATIN 80 MG TAB PO (21:09)
[2018-03-17] MEDS: ACCU-CHEK XX (02:00)
[2018-03-17] MEDS: PANTOPRAZOLE (EC) 40 MG TAB PO ×2 (05:30→17:56)
[2018-03-17] MEDS: LEVOTHYROXINE 175 MCG TAB PO (06:56)
[2018-03-17 07:50] LABS: ADD MAN DIFF? NO
[2018-03-17 07:55] LABS: BASOPHILS % 0.2 % (0.0-2.0); EOSINOPHILS # 0.2 10^3/ul (0.0-0.5); EOSINOPHILS % 1.9 % (0.0-7.0); HEMATOCRIT 29.3 % (42.0-52.0); HEMOGLOBIN 8.9 g/dl (14.0-18.0); LYMPHOCYTES # 1.1 10^3/ul (0.8-2.9); MEAN CORPUSCULAR HEMOGLOBIN 25.9 pg (29.0-33.0); MEAN CORPUSCULAR HGB CONC 30.4 g/dl (32.0-37.0); MEAN CORPUSCULAR VOLUME 85.4 fl (82.0-101.0); MONOCYTE # 0.8 10^3/ul (0.3-0.9); MONOCYTES % 8.8 % (0.0-11.0); NEUTROPHIL # 6.9 10^3/ul (1.6-7.5); NEUTROPHILS % 76.7 % (39.0-77.0); PLATELET COUNT 180 10^3/UL (140-415); RED BLOOD COUNT 3.43 10^6/ul (4.70-6.10)
[2018-03-17] MEDS: INSULIN ASPART [NOVOLOG] 3 ML PEN SC ×4 (07:55→20:58)
[2018-03-17] MEDS: GLIMEPIRIDE 2 MG TAB PO (08:09)
[2018-03-17] MEDS: ALLOPURINOL 100 MG TAB PO (08:13)
[2018-03-17] MEDS: FUROSEMIDE 20 MG TAB PO (08:14)
[2018-03-17] MEDS: LISINOPRIL 5 MG TAB PO (08:14)
[2018-03-17 08:46] LABS: ANION GAP 9 (5-13); BLOOD UREA NITROGEN 30 mg/dl (7-20); CALCIUM 8.9 mg/dl (8.4-10.2); CARBON DIOXIDE 23 mmol/L (21-31); CHLORIDE 107 mmol/L (97-110); CREATININE 1.72 mg/dl (0.61-1.24); GLUCOSE 99 mg/dl (70-220); POTASSIUM 4.4 mmol/L (3.5-5.1); SODIUM 139 mmol/L (135-144)
[2018-03-17 15:01] LABS: HAPTOGLOBIN 202 mg/dL (43-212)
[2018-03-17 15:52] LABS: ABNORMAL PROTEIN BAND 1 0.1 g/dL (NONE DETECTED); ABNORMAL PROTEIN BAND 2 0.1 g/dL (NONE DETECTED); ALBUMIN 3.2 g/dL (3.8-4.8); ALPHA-1-GLOBULINS 0.4 g/dL (0.2-0.3); ALPHA-2-GLOBULINS 0.7 g/dL (0.5-0.9); BETA 2 GLOBULINS 0.2 g/dL (0.2-0.5); BETA GLOBULINS 0.5 g/dL (0.4-0.6)
[2018-03-17] MEDS: SOD FERRIC GLUC COMPLX 125 MG in SOD CHLORIDE 0.9% 100 ML IVPB (16:58)
[2018-03-17] MEDS: ATORVASTATIN 80 MG TAB PO (20:57)
[2018-03-18] MEDS: ACCU-CHEK XX (02:00)
[2018-03-18] MEDS: PANTOPRAZOLE (EC) 40 MG TAB PO ×2 (06:16→18:21)
[2018-03-18] MEDS: LEVOTHYROXINE 175 MCG TAB PO (06:17)
[2018-03-18] MEDS: INSULIN ASPART [NOVOLOG] 3 ML PEN SC ×4 (07:55→21:00)
[2018-03-18] MEDS: LISINOPRIL 5 MG TAB PO (08:12)
[2018-03-18] MEDS: ALLOPURINOL 100 MG TAB PO (08:12)
[2018-03-18] MEDS: FUROSEMIDE 20 MG TAB PO (08:12)
[2018-03-18 08:42] LABS: ADD MAN DIFF? NO
[2018-03-18 08:47] LABS: WHITE BLOOD COUNT 10.6 10^3/ul (4.8-10.8)
[2018-03-18 08:47] LABS: BASOPHILS % 0.3 % (0.0-2.0); EOSINOPHILS # 0.2 10^3/ul (0.0-0.5); EOSINOPHILS % 1.9 % (0.0-7.0); HEMATOCRIT 30.8 % (42.0-52.0); HEMOGLOBIN 9.1 g/dl (14.0-18.0); LYMPHOCYTES # 1.3 10^3/ul (0.8-2.9); LYMPHOCYTES % 11.8 % (15.0-51.0); MEAN CORPUSCULAR HEMOGLOBIN 25.7 pg (29.0-33.0); MEAN CORPUSCULAR HGB CONC 29.5 g/dl (32.0-37.0); MONOCYTE # 0.8 10^3/ul (0.3-0.9); MONOCYTES % 7.7 % (0.0-11.0); NEUTROPHIL # 8.3 10^3/ul (1.6-7.5); NEUTROPHILS % 77.8 % (39.0-77.0); PLATELET COUNT 191 10^3/UL (140-415); RED BLOOD COUNT 3.54 10^6/ul (4.70-6.10); RED CELL DISTRIBUTION WIDTH 18.6 % (11.5-14.5)
[2018-03-18 09:11] LABS: ANION GAP 10 (5-13); BLOOD UREA NITROGEN 29 mg/dl (7-20); CARBON DIOXIDE 24 mmol/L (21-31); CHLORIDE 105 mmol/L (97-110); CREATININE 1.61 mg/dl (0.61-1.24); GLUCOSE 89 mg/dl (70-220); POTASSIUM 4.3 mmol/L (3.5-5.1); SODIUM 139 mmol/L (135-144)
[2018-03-18] MEDS: GLIMEPIRIDE 2 MG TAB PO (10:25)
[2018-03-18] MEDS: LIDOCAINE 1% (MPF) 5 ML VIAL ×2 (12:33→12:34)
[2018-03-18] MEDS: CYANOCOBALAMIN 1000 MCG INJ IM (18:21)
[2018-03-18] MEDS: ATORVASTATIN 80 MG TAB PO (21:37)
[2018-03-19] MEDS: ACCU-CHEK XX (01:25)
[2018-03-19] MEDS: PANTOPRAZOLE (EC) 40 MG TAB PO ×2 (06:04→17:41)
[2018-03-19] MEDS: LEVOTHYROXINE 175 MCG TAB PO (06:04)
[2018-03-19 07:38] LABS: ANION GAP 12 (5-13); BLOOD UREA NITROGEN 35 mg/dl (7-20); CALCIUM 8.7 mg/dl (8.4-10.2); CARBON DIOXIDE 23 mmol/L (21-31); CHLORIDE 105 mmol/L (97-110); CREATININE 1.81 mg/dl (0.61-1.24); GLUCOSE 92 mg/dl (70-220); POTASSIUM 4.8 mmol/L (3.5-5.1); SODIUM 140 mmol/L (135-144)
[2018-03-19] MEDS: INSULIN ASPART [NOVOLOG] 3 ML PEN SC ×4 (07:55→21:00)
[2018-03-19] MEDS: CYANOCOBALAMIN 1000 MCG INJ IM (08:31)
[2018-03-19] MEDS: GLIMEPIRIDE 2 MG TAB PO (08:31)
[2018-03-19] MEDS: FUROSEMIDE 20 MG TAB PO (08:32)
[2018-03-19] MEDS: LISINOPRIL 5 MG TAB PO (08:32)
[2018-03-19] MEDS: ALLOPURINOL 100 MG TAB PO (08:33)
[2018-03-19] MEDS: ATORVASTATIN 80 MG TAB PO (21:00)
[2018-03-20] MEDS: ACCU-CHEK XX (02:00)
[2018-03-20] MEDS: PANTOPRAZOLE (EC) 40 MG TAB PO ×2 (06:30→17:17)
[2018-03-20] MEDS: LEVOTHYROXINE 175 MCG TAB PO (06:30)
[2018-03-20] MEDS: INSULIN ASPART [NOVOLOG] 3 ML PEN SC ×4 (07:55→20:36)
[2018-03-20] MEDS: GLIMEPIRIDE 2 MG TAB PO (08:15)
[2018-03-20] MEDS: CYANOCOBALAMIN 1000 MCG INJ IM (08:15)
[2018-03-20] MEDS: ALLOPURINOL 100 MG TAB PO (08:15)
[2018-03-20] MEDS: LISINOPRIL 5 MG TAB PO (08:16)
[2018-03-20] MEDS: FUROSEMIDE 20 MG TAB PO (08:16)
[2018-03-20] MEDS: PEG/ELECTROLYTES 4L BTL PO ×2 (17:17)
[2018-03-20] MEDS: BISACODYL (EC) 5 MG TAB PO ×2 (17:17→20:32)
[2018-03-20] MEDS: ATORVASTATIN 80 MG TAB PO (20:32)
[2018-03-20] MEDS: SOD CHLORIDE 0.45% 1,000 ML IV (23:30)
[2018-03-21] MEDS: ACCU-CHEK XX (02:00)
[2018-03-21] MEDS: PANTOPRAZOLE (EC) 40 MG TAB PO ×2 (06:00→17:21)
[2018-03-21] MEDS: LEVOTHYROXINE 175 MCG TAB PO (06:03)
[2018-03-21] MEDS: GLIMEPIRIDE 2 MG TAB PO (06:03)
[2018-03-21 06:13] LABS: ADD MAN DIFF? NO
[2018-03-21 06:20] LABS: WHITE BLOOD COUNT 12.5 10^3/ul (4.8-10.8)
[2018-03-21 06:20] LABS: BASOPHILS % 0.2 % (0.0-2.0); EOSINOPHILS # 0.1 10^3/ul (0.0-0.5); EOSINOPHILS % 0.5 % (0.0-7.0); HEMATOCRIT 34.1 % (42.0-52.0); HEMOGLOBIN 10.1 g/dl (14.0-18.0); LYMPHOCYTES # 0.6 10^3/ul (0.8-2.9); MEAN CORPUSCULAR HEMOGLOBIN 26.4 pg (29.0-33.0); MEAN CORPUSCULAR HGB CONC 29.6 g/dl (32.0-37.0); MEAN PLATELET VOLUME 10.6 fl (7.4-10.4); MONOCYTE # 0.5 10^3/ul (0.3-0.9); MONOCYTES % 4.1 % (0.0-11.0); NEUTROPHIL # 11.3 10^3/ul (1.6-7.5); NEUTROPHILS % 89.9 % (39.0-77.0); PLATELET COUNT 191 10^3/UL (140-415); RED BLOOD COUNT 3.83 10^6/ul (4.70-6.10); RED CELL DISTRIBUTION WIDTH 19.8 % (11.5-14.5)
[2018-03-21 06:39] LABS: INR 0.99; PROTIME 13.2 Sec (11.9-14.9)
[2018-03-21 06:40] LABS: PARTIAL THROMBOPLASTIN TIME 37.8 Sec (23.0-35.0)
[2018-03-21 06:48] LABS: ALANINE AMINOTRANSFERASE 19 IU/L (13-69); ALBUMIN 3.7 g/dl (3.3-4.9); ALBUMIN/GLOBULIN RATIO 1.12; ALKALINE PHOSPHATASE 86 IU/L (42-121); ANION GAP 12 (5-13); ASPARTATE AMINO TRANSFERASE 19 IU/L (15-46); BILIRUBIN,INDIRECT 0.8 mg/dl (0-1.1); BILIRUBIN,TOTAL 0.8 mg/dl (0.2-1.3); BLOOD UREA NITROGEN 40 mg/dl (7-20); CALCIUM 8.7 mg/dl (8.4-10.2); CARBON DIOXIDE 24 mmol/L (21-31); CHLORIDE 104 mmol/L (97-110); CREATININE 1.75 mg/dl (0.61-1.24); GLUCOSE 115 mg/dl (70-220); SODIUM 140 mmol/L (135-144)
[2018-03-21] MEDS: INSULIN ASPART [NOVOLOG] 3 ML PEN SC ×4 (07:55→21:00)
[2018-03-21] MEDS: FUROSEMIDE 20 MG TAB PO (09:00)
[2018-03-21] MEDS: ALLOPURINOL 100 MG TAB PO (09:00)
[2018-03-21] MEDS: LISINOPRIL 5 MG TAB PO (09:00)
[2018-03-21] MEDS: CYANOCOBALAMIN 1000 MCG INJ IM (09:01)
[2018-03-21] MEDS: MAGNESIUM SULFATE 1 GM/D5W 100 ML IVPB (13:37)
[2018-03-21 13:57] LABS: MAGNESIUM 2.2 mg/dl (1.7-2.5)
[2018-03-21] MEDS: SOD CHLORIDE 0.45% 1,000 ML IV (14:46)
[2018-03-21] MEDS: EPOETIN 10000 UNITS/ML (NON ESRD/NON ONCOLOGY) SC (17:24)
[2018-03-21 19:03] LABS: CREATINE KINASE 61 IU/L (23-200)
[2018-03-21 19:17] LABS: CK INDEX 0.8; CK-MB 0.49 ng/ml (0.0-2.4)
[2018-03-21] MEDS: ATORVASTATIN 80 MG TAB PO (21:58)
[2018-03-22 01:31] LABS: CREATINE KINASE 55 IU/L (23-200)
[2018-03-22 01:46] LABS: CK INDEX 0.9; CK-MB 0.48 ng/ml (0.0-2.4); TROPONIN-I 0.083 ng/ml (0.000-0.120)
[2018-03-22] MEDS: ACCU-CHEK XX (02:00)
[2018-03-22] MEDS: LEVOTHYROXINE 175 MCG TAB PO (06:30)
[2018-03-22] MEDS: PANTOPRAZOLE (EC) 40 MG TAB PO ×2 (06:30→17:14)
[2018-03-22 07:21] LABS: ADD MAN DIFF? NO
[2018-03-22 07:28] LABS: BASOPHILS % 0.1 % (0.0-2.0); EOSINOPHILS % 0.1 % (0.0-7.0); HEMATOCRIT 27.6 % (42.0-52.0); HEMOGLOBIN 8.4 g/dl (14.0-18.0); LYMPHOCYTES % 5.7 % (15.0-51.0); MEAN CORPUSCULAR HEMOGLOBIN 26.6 pg (29.0-33.0); MEAN CORPUSCULAR HGB CONC 30.4 g/dl (32.0-37.0); MEAN CORPUSCULAR VOLUME 87.3 fl (82.0-101.0); MEAN PLATELET VOLUME 11.2 fl (7.4-10.4); MONOCYTE # 1.2 10^3/ul (0.3-0.9); NEUTROPHIL # 14.7 10^3/ul (1.6-7.5); NEUTROPHILS % 86.5 % (39.0-77.0); PLATELET COUNT 157 10^3/UL (140-415); RED BLOOD COUNT 3.16 10^6/ul (4.70-6.10); RED CELL DISTRIBUTION WIDTH 20.3 % (11.5-14.5)
[2018-03-22 07:55] LABS: ANION GAP 11 (5-13); BLOOD UREA NITROGEN 51 mg/dl (7-20); CALCIUM 8.4 mg/dl (8.4-10.2); CARBON DIOXIDE 22 mmol/L (21-31); CHLORIDE 103 mmol/L (97-110); CREATININE 2.54 mg/dl (0.61-1.24); GLUCOSE 103 mg/dl (70-220); POTASSIUM 4.8 mmol/L (3.5-5.1); SODIUM 136 mmol/L (135-144)
[2018-03-22] MEDS: INSULIN ASPART [NOVOLOG] 3 ML PEN SC ×4 (07:55→21:00)
[2018-03-22 07:57] LABS: CREATINE KINASE 56 IU/L (23-200)
[2018-03-22 08:04] LABS: CK INDEX 1.1; CK-MB 0.61 ng/ml (0.0-2.4); TROPONIN-I 0.093 ng/ml (0.000-0.120)
[2018-03-22] MEDS: FUROSEMIDE 20 MG TAB PO (09:00)
[2018-03-22] MEDS: LISINOPRIL 5 MG TAB PO (09:00)
[2018-03-22] MEDS: GLIMEPIRIDE 2 MG TAB PO (09:07)
[2018-03-22] MEDS: ALLOPURINOL 100 MG TAB PO (09:08)
[2018-03-22] MEDS: SOD CHLORIDE 0.45% 1,000 ML IV ×2 (09:09→11:47)
[2018-03-22] MEDS: MAGNESIUM SULFATE 3 GM in DEXTROSE 5% 100 ML IVPB (13:55)
[2018-03-22] MEDS: metroNIDAZOLE 500 MG/NS (PMX) 100 ML IVPB ×2 (17:14→23:58)
[2018-03-22] MEDS: SOD CHLORIDE 0.9% 500 ML IV (20:37)
[2018-03-22] MEDS ORDERED: SOD CHLORIDE 0.9% IV (21:30)
[2018-03-22] MEDS: ATORVASTATIN 80 MG TAB PO (21:45)
[2018-03-22] MEDS ORDERED: SOD CHLORIDE 0.9% 1,000 ML IV (22:00)
[2018-03-22] MEDS: SOD CHLORIDE 0.9% 1,000 ML IV (22:27)
[2018-03-23] MEDS: ACCU-CHEK XX (01:40)
[2018-03-23] MEDS: metroNIDAZOLE 500 MG/NS (PMX) 100 ML IVPB ×4 (05:53→23:23)
[2018-03-23] MEDS: PANTOPRAZOLE (EC) 40 MG TAB PO ×2 (05:54→19:09)
[2018-03-23] MEDS: LEVOTHYROXINE 175 MCG TAB PO (06:01)
[2018-03-23 06:41] LABS: ADD MAN DIFF? NO
[2018-03-23 06:55] LABS: WHITE BLOOD COUNT 9.9 10^3/ul (4.8-10.8)
[2018-03-23 06:55] LABS: BASOPHILS % 0.2 % (0.0-2.0); EOSINOPHILS % 0.1 % (0.0-7.0); HEMOGLOBIN 7.5 g/dl (14.0-18.0); LYMPHOCYTES # 0.9 10^3/ul (0.8-2.9); LYMPHOCYTES % 8.8 % (15.0-51.0); MEAN CORPUSCULAR HEMOGLOBIN 26.6 pg (29.0-33.0); MEAN CORPUSCULAR VOLUME 88.7 fl (82.0-101.0); MEAN PLATELET VOLUME 11.3 fl (7.4-10.4); MONOCYTE # 0.8 10^3/ul (0.3-0.9); MONOCYTES % 7.7 % (0.0-11.0); NEUTROPHIL # 8.2 10^3/ul (1.6-7.5); PLATELET COUNT 140 10^3/UL (140-415); RED BLOOD COUNT 2.82 10^6/ul (4.70-6.10); RED CELL DISTRIBUTION WIDTH 19.8 % (11.5-14.5)
[2018-03-23 07:03] LABS: ANION GAP 8 (5-13); BLOOD UREA NITROGEN 50 mg/dl (7-20); CALCIUM 8.1 mg/dl (8.4-10.2); CARBON DIOXIDE 22 mmol/L (21-31); CHLORIDE 103 mmol/L (97-110); CREATININE 2.25 mg/dl (0.61-1.24); GLUCOSE 79 mg/dl (70-220); POTASSIUM 4.2 mmol/L (3.5-5.1); SODIUM 133 mmol/L (135-144)
[2018-03-23] MEDS: INSULIN ASPART [NOVOLOG] 3 ML PEN SC ×4 (07:55→21:00)
[2018-03-23] MEDS: ALLOPURINOL 100 MG TAB PO (08:28)
[2018-03-23] MEDS: GLIMEPIRIDE 2 MG TAB PO (08:28)
[2018-03-23] MEDS: LISINOPRIL 5 MG TAB PO (09:00)
[2018-03-23] MEDS: FUROSEMIDE 20 MG TAB PO (09:00)
[2018-03-23] MEDS: SOD CHLORIDE 0.9% 1,000 ML IV (12:18)
[2018-03-23 14:15] LABS: IMMEDIATE SPIN CROSSMATCH 1 1
[2018-03-23] MEDS: SOD FERRIC GLUC COMPLX 125 MG in SOD CHLORIDE 0.9% 100 ML IVPB (19:10)
[2018-03-23] MEDS: ATORVASTATIN 80 MG TAB PO (21:03)
[2018-03-24] MEDS: SOD CHLORIDE 0.9% 1,000 ML IV (01:01)
[2018-03-24] MEDS: ACCU-CHEK XX (02:00)
[2018-03-24] MEDS: LEVOTHYROXINE 175 MCG TAB PO (05:39)
[2018-03-24] MEDS: metroNIDAZOLE 500 MG/NS (PMX) 100 ML IVPB ×3 (05:39→22:09)
[2018-03-24] MEDS: PANTOPRAZOLE (EC) 40 MG TAB PO ×2 (05:39→17:31)
[2018-03-24] MEDS: INSULIN ASPART [NOVOLOG] 3 ML PEN SC ×4 (07:55→20:39)
[2018-03-24] MEDS: CYANOCOBALAMIN 500 MCG TAB PO (08:51)
[2018-03-24] MEDS: GLIMEPIRIDE 2 MG TAB PO (08:51)
[2018-03-24] MEDS: ALLOPURINOL 100 MG TAB PO (08:51)
[2018-03-24] MEDS: traMADol 50 MG TAB PO ×2 (08:55→20:29)
[2018-03-24] MEDS: FUROSEMIDE 20 MG TAB PO (09:00)
[2018-03-24] MEDS: LISINOPRIL 5 MG TAB PO (09:00)
[2018-03-24 10:53] LABS: ADD MAN DIFF? NO
[2018-03-24 11:05] LABS: ABNORMAL IP MESSAGE 1; BASOPHILS % 0.2 % (0.0-2.0); EOSINOPHILS % 0.6 % (0.0-7.0); HEMATOCRIT 30.1 % (42.0-52.0); LYMPHOCYTES # 0.6 10^3/ul (0.8-2.9); LYMPHOCYTES % 8.9 % (15.0-51.0); MEAN CORPUSCULAR HEMOGLOBIN 26.6 pg (29.0-33.0); MEAN CORPUSCULAR HGB CONC 29.9 g/dl (32.0-37.0); MEAN CORPUSCULAR VOLUME 89.1 fl (82.0-101.0); MEAN PLATELET VOLUME 9.9 fl (7.4-10.4); MONOCYTE # 0.5 10^3/ul (0.3-0.9); MONOCYTES % 6.9 % (0.0-11.0); NEUTROPHIL # 5.5 10^3/ul (1.6-7.5); NEUTROPHILS % 82.9 % (39.0-77.0); PLATELET COUNT 139 10^3/UL (140-415); POSITIVE DIFF @See below; RED BLOOD COUNT 3.38 10^6/ul (4.70-6.10); RED CELL DISTRIBUTION WIDTH 19.1 % (11.5-14.5)
[2018-03-24 11:05] LABS: WHITE BLOOD COUNT 6.7 10^3/ul (4.8-10.8)
[2018-03-24 11:14] LABS: ANION GAP 8 (5-13); BLOOD UREA NITROGEN 37 mg/dl (7-20); CALCIUM 8.5 mg/dl (8.4-10.2); CARBON DIOXIDE 22 mmol/L (21-31); CHLORIDE 110 mmol/L (97-110); CREATININE 1.62 mg/dl (0.61-1.24); GLUCOSE 119 mg/dl (70-220); POTASSIUM 4.4 mmol/L (3.5-5.1); SODIUM 140 mmol/L (135-144)
[2018-03-24] MEDS: BISACODYL (EC) 5 MG TAB PO ×2 (17:31→20:28)
[2018-03-24] MEDS: PEG/ELECTROLYTES 4L BTL PO ×2 (17:35→20:30)
[2018-03-24] MEDS: SOD FERRIC GLUC COMPLX 125 MG in SOD CHLORIDE 0.9% 100 ML IVPB (17:37)
[2018-03-24] MEDS: ATORVASTATIN 80 MG TAB PO (20:28)
[2018-03-25] MEDS: ACCU-CHEK XX (02:00)
[2018-03-25 06:37] LABS: ADD MAN DIFF? NO
[2018-03-25 06:49] LABS: WHITE BLOOD COUNT 6.4 10^3/ul (4.8-10.8)
[2018-03-25 06:49] LABS: BASOPHILS % 0.2 % (0.0-2.0); EOSINOPHILS # 0.1 10^3/ul (0.0-0.5); EOSINOPHILS % 1.1 % (0.0-7.0); HEMATOCRIT 31.6 % (42.0-52.0); HEMOGLOBIN 9.5 g/dl (14.0-18.0); LYMPHOCYTES # 0.9 10^3/ul (0.8-2.9); LYMPHOCYTES % 13.9 % (15.0-51.0); MEAN CORPUSCULAR HEMOGLOBIN 26.5 pg (29.0-33.0); MEAN CORPUSCULAR HGB CONC 30.1 g/dl (32.0-37.0); MEAN CORPUSCULAR VOLUME 88.3 fl (82.0-101.0); MEAN PLATELET VOLUME 11.1 fl (7.4-10.4); MONOCYTE # 0.5 10^3/ul (0.3-0.9); MONOCYTES % 7.9 % (0.0-11.0); NEUTROPHIL # 4.9 10^3/ul (1.6-7.5); NEUTROPHILS % 76.4 % (39.0-77.0); PLATELET COUNT 173 10^3/UL (140-415); RED BLOOD COUNT 3.58 10^6/ul (4.70-6.10); RED CELL DISTRIBUTION WIDTH 19.1 % (11.5-14.5)
[2018-03-25 07:05] LABS: ANION GAP 7 (5-13); BLOOD UREA NITROGEN 33 mg/dl (7-20); CALCIUM 8.8 mg/dl (8.4-10.2); CARBON DIOXIDE 23 mmol/L (21-31); CHLORIDE 108 mmol/L (97-110); CREATININE 1.57 mg/dl (0.61-1.24); GLUCOSE 92 mg/dl (70-220); POTASSIUM 4.4 mmol/L (3.5-5.1); SODIUM 138 mmol/L (135-144)
[2018-03-25 07:06] LABS: INR 1.12; PROTIME 14.6 Sec (11.9-14.9); PT RATIO 1.1
[2018-03-25] MEDS: PANTOPRAZOLE (EC) 40 MG TAB PO ×2 (07:06→18:00)
[2018-03-25] MEDS: LEVOTHYROXINE 175 MCG TAB PO (07:06)
[2018-03-25] MEDS: metroNIDAZOLE 500 MG/NS (PMX) 100 ML IVPB ×3 (07:06→21:20)
[2018-03-25] MEDS: INSULIN ASPART [NOVOLOG] 3 ML PEN SC ×4 (07:55→21:00)
[2018-03-25] MEDS: GLIMEPIRIDE 2 MG TAB PO (07:55)
[2018-03-25] MEDS: FUROSEMIDE 20 MG TAB PO (09:00)
[2018-03-25] MEDS: LISINOPRIL 5 MG TAB PO (09:00)
[2018-03-25] MEDS: ALLOPURINOL 100 MG TAB PO (09:00)
[2018-03-25] MEDS: SOD FERRIC GLUC COMPLX 125 MG in SOD CHLORIDE 0.9% 100 ML IVPB (17:00)
[2018-03-25] MEDS: ATORVASTATIN 80 MG TAB PO (21:16)
[2018-03-26] MEDS: ACCU-CHEK XX (02:00)
[2018-03-26] MEDS: PANTOPRAZOLE (EC) 40 MG TAB PO ×2 (05:39→17:05)
[2018-03-26] MEDS: metroNIDAZOLE 500 MG/NS (PMX) 100 ML IVPB ×3 (05:39→21:14)
[2018-03-26] MEDS: LEVOTHYROXINE 175 MCG TAB PO (05:40)
[2018-03-26] MEDS: INSULIN ASPART [NOVOLOG] 3 ML PEN SC ×4 (07:55→21:00)
[2018-03-26] MEDS: GLIMEPIRIDE 2 MG TAB PO (08:12)
[2018-03-26] MEDS: ALLOPURINOL 100 MG TAB PO (08:12)
[2018-03-26] MEDS: FUROSEMIDE 20 MG TAB PO (08:13)
[2018-03-26] MEDS: LISINOPRIL 5 MG TAB PO (08:13)
[2018-03-26] MEDS: ASPIRIN (EC) 81 MG TAB PO (15:51)
[2018-03-26] MEDS: SOD FERRIC GLUC COMPLX 125 MG in SOD CHLORIDE 0.9% 100 ML IVPB (16:59)
[2018-03-26] MEDS: ATORVASTATIN 80 MG TAB PO (21:13)
[2018-03-27] MEDS: ACCU-CHEK XX (02:00)
[2018-03-27 06:06] LABS: ADD MAN DIFF? NO
[2018-03-27] MEDS: metroNIDAZOLE 500 MG/NS (PMX) 100 ML IVPB ×3 (06:06→21:11)
[2018-03-27] MEDS: LEVOTHYROXINE 175 MCG TAB PO (06:07)
[2018-03-27] MEDS: PANTOPRAZOLE (EC) 40 MG TAB PO ×2 (06:07→17:26)
[2018-03-27 06:10] LABS: BASOPHILS % 0.3 % (0.0-2.0); EOSINOPHILS # 0.1 10^3/ul (0.0-0.5); HEMATOCRIT 32.1 % (42.0-52.0); HEMOGLOBIN 9.8 g/dl (14.0-18.0); LYMPHOCYTES % 14.9 % (15.0-51.0); MEAN CORPUSCULAR HEMOGLOBIN 26.6 pg (29.0-33.0); MEAN CORPUSCULAR HGB CONC 30.5 g/dl (32.0-37.0); MEAN PLATELET VOLUME 10.3 fl (7.4-10.4); MONOCYTE # 0.4 10^3/ul (0.3-0.9); MONOCYTES % 6.5 % (0.0-11.0); NEUTROPHIL # 5.2 10^3/ul (1.6-7.5); NEUTROPHILS % 76.6 % (39.0-77.0); PLATELET COUNT 173 10^3/UL (140-415); RED BLOOD COUNT 3.69 10^6/ul (4.70-6.10); RED CELL DISTRIBUTION WIDTH 19.9 % (11.5-14.5)
[2018-03-27 06:10] LABS: WHITE BLOOD COUNT 6.8 10^3/ul (4.8-10.8)
[2018-03-27 06:46] LABS: ANION GAP 9 (5-13); BLOOD UREA NITROGEN 25 mg/dl (7-20); CALCIUM 9.1 mg/dl (8.4-10.2); CARBON DIOXIDE 23 mmol/L (21-31); CHLORIDE 107 mmol/L (97-110); CREATININE 1.57 mg/dl (0.61-1.24); GLUCOSE 111 mg/dl (70-220); POTASSIUM 4.4 mmol/L (3.5-5.1); SODIUM 139 mmol/L (135-144)
[2018-03-27] MEDS: INSULIN ASPART [NOVOLOG] 3 ML PEN SC ×4 (07:55→21:00)
[2018-03-27] MEDS: ASPIRIN (EC) 81 MG TAB PO (08:40)
[2018-03-27] MEDS: GLIMEPIRIDE 2 MG TAB PO (08:40)
[2018-03-27] MEDS: ALLOPURINOL 100 MG TAB PO (08:40)
[2018-03-27] MEDS: FUROSEMIDE 20 MG TAB PO (08:41)
[2018-03-27] MEDS: LISINOPRIL 5 MG TAB PO (08:41)
[2018-03-27] MEDS: SOD FERRIC GLUC COMPLX 125 MG in SOD CHLORIDE 0.9% 100 ML IVPB (16:45)
[2018-03-27] MEDS: ATORVASTATIN 80 MG TAB PO (21:14)
[2018-03-28] MEDS: ACCU-CHEK XX (02:00)
[2018-03-28] MEDS: LEVOTHYROXINE 175 MCG TAB PO (05:54)
[2018-03-28] MEDS: PANTOPRAZOLE (EC) 40 MG TAB PO ×2 (05:54→17:09)
[2018-03-28] MEDS: metroNIDAZOLE 500 MG/NS (PMX) 100 ML IVPB ×3 (05:54→22:18)
[2018-03-28] MEDS: INSULIN ASPART [NOVOLOG] 3 ML PEN SC ×4 (07:55→22:10)
[2018-03-28] MEDS: ASPIRIN (EC) 81 MG TAB PO (08:01)
[2018-03-28] MEDS: ALLOPURINOL 100 MG TAB PO (08:01)
[2018-03-28] MEDS: FUROSEMIDE 20 MG TAB PO (08:02)
[2018-03-28] MEDS: GLIMEPIRIDE 2 MG TAB PO (08:02)
[2018-03-28] MEDS: LISINOPRIL 5 MG TAB PO (08:03)
[2018-03-28] MEDS: EPOETIN 10000 UNITS/ML (NON ESRD/NON ONCOLOGY) SC (16:26)
[2018-03-28] MEDS: ATORVASTATIN 80 MG TAB PO (22:18)
[2018-03-29] MEDS: ACCU-CHEK XX ×2 (02:00→22:24)
[2018-03-29] MEDS: PANTOPRAZOLE (EC) 40 MG TAB PO ×2 (05:11→17:58)
[2018-03-29] MEDS: metroNIDAZOLE 500 MG/NS (PMX) 100 ML IVPB ×2 (05:11→14:26)
[2018-03-29 06:31] LABS: ADD MAN DIFF? NO
[2018-03-29 06:40] LABS: BASOPHILS % 0.3 % (0.0-2.0); EOSINOPHILS # 0.1 10^3/ul (0.0-0.5); EOSINOPHILS % 1.6 % (0.0-7.0); HEMATOCRIT 35.5 % (42.0-52.0); HEMOGLOBIN 10.6 g/dl (14.0-18.0); LYMPHOCYTES # 1.3 10^3/ul (0.8-2.9); LYMPHOCYTES % 17.1 % (15.0-51.0); MEAN CORPUSCULAR HEMOGLOBIN 26.4 pg (29.0-33.0); MEAN CORPUSCULAR HGB CONC 29.9 g/dl (32.0-37.0); MEAN CORPUSCULAR VOLUME 88.5 fl (82.0-101.0); MONOCYTE # 0.6 10^3/ul (0.3-0.9); MONOCYTES % 7.2 % (0.0-11.0); NEUTROPHIL # 5.6 10^3/ul (1.6-7.5); NEUTROPHILS % 72.8 % (39.0-77.0); PLATELET COUNT 199 10^3/UL (140-415); RED BLOOD COUNT 4.01 10^6/ul (4.70-6.10); RED CELL DISTRIBUTION WIDTH 20.6 % (11.5-14.5)
[2018-03-29 06:40] LABS: WHITE BLOOD COUNT 7.6 10^3/ul (4.8-10.8)
[2018-03-29] MEDS: LEVOTHYROXINE 175 MCG TAB PO (07:00)
[2018-03-29 07:16] LABS: ANION GAP 10 (5-13); BLOOD UREA NITROGEN 23 mg/dl (7-20); CALCIUM 9.1 mg/dl (8.4-10.2); CARBON DIOXIDE 23 mmol/L (21-31); CHLORIDE 105 mmol/L (97-110); CREATININE 1.57 mg/dl (0.61-1.24); GLUCOSE 89 mg/dl (70-220); POTASSIUM 4.3 mmol/L (3.5-5.1); SODIUM 138 mmol/L (135-144)
[2018-03-29] MEDS: INSULIN ASPART [NOVOLOG] 3 ML PEN SC ×4 (07:55→21:00)
[2018-03-29] MEDS: FUROSEMIDE 20 MG TAB PO (08:31)
[2018-03-29] MEDS: FERROUS SULFATE (EC) 325 MG TAB PO (08:31)
[2018-03-29] MEDS: CYANOCOBALAMIN 500 MCG TAB PO (08:31)
[2018-03-29] MEDS: ALLOPURINOL 100 MG TAB PO (08:31)
[2018-03-29] MEDS: GLIMEPIRIDE 2 MG TAB PO (08:32)
[2018-03-29] MEDS: ASPIRIN (EC) 81 MG TAB PO (08:32)
[2018-03-29] MEDS: LISINOPRIL 5 MG TAB PO (08:32)
[2018-03-29] MEDS: traMADol 50 MG TAB PO (14:56)
[2018-03-29] MEDS: ATORVASTATIN 80 MG TAB PO (22:08)
[2018-03-29] MEDS: metroNIDAZOLE 500 MG TAB PO (22:08)
[2018-03-30] MEDS: PANTOPRAZOLE (EC) 40 MG TAB PO ×2 (05:27→16:54)
[2018-03-30] MEDS: metroNIDAZOLE 500 MG TAB PO ×3 (05:27→20:40)
[2018-03-30] MEDS: LEVOTHYROXINE 175 MCG TAB PO (06:28)
[2018-03-30] MEDS: INSULIN ASPART [NOVOLOG] 3 ML PEN SC ×4 (07:55→20:43)
[2018-03-30] MEDS: FUROSEMIDE 20 MG TAB PO (07:57)
[2018-03-30] MEDS: ASPIRIN (EC) 81 MG TAB PO (07:57)
[2018-03-30] MEDS: FERROUS SULFATE (EC) 325 MG TAB PO (07:57)
[2018-03-30] MEDS: ALLOPURINOL 100 MG TAB PO (07:57)
[2018-03-30] MEDS: GLIMEPIRIDE 2 MG TAB PO (07:58)
[2018-03-30] MEDS: CYANOCOBALAMIN 500 MCG TAB PO (07:59)
[2018-03-30] MEDS: LISINOPRIL 5 MG TAB PO (07:59)
[2018-03-30] MEDS: ETOMIDATE 20 MG INJ ×2 (19:44→19:45)
[2018-03-30] MEDS: PROPOFOL 20 ML (19:45)
[2018-03-30] MEDS: ATORVASTATIN 80 MG TAB PO (20:40)
[2018-03-31] MEDS: ACCU-CHEK XX (02:50)
[2018-03-31 05:25] LABS: ADD MAN DIFF? NO
[2018-03-31 05:34] LABS: BASOPHILS % 0.3 % (0.0-2.0); EOSINOPHILS # 0.1 10^3/ul (0.0-0.5); EOSINOPHILS % 1.7 % (0.0-7.0); HEMATOCRIT 35.7 % (42.0-52.0); HEMOGLOBIN 10.8 g/dl (14.0-18.0); LYMPHOCYTES # 1.2 10^3/ul (0.8-2.9); LYMPHOCYTES % 16.6 % (15.0-51.0); MEAN CORPUSCULAR HEMOGLOBIN 27.3 pg (29.0-33.0); MEAN CORPUSCULAR HGB CONC 30.3 g/dl (32.0-37.0); MEAN CORPUSCULAR VOLUME 90.2 fl (82.0-101.0); MONOCYTE # 0.4 10^3/ul (0.3-0.9); MONOCYTES % 5.9 % (0.0-11.0); NEUTROPHIL # 5.3 10^3/ul (1.6-7.5); NEUTROPHILS % 74.7 % (39.0-77.0); PLATELET COUNT 237 10^3/UL (140-415); RED BLOOD COUNT 3.96 10^6/ul (4.70-6.10); RED CELL DISTRIBUTION WIDTH 21.3 % (11.5-14.5)
[2018-03-31 05:34] LABS: WHITE BLOOD COUNT 7.1 10^3/ul (4.8-10.8)
[2018-03-31] MEDS: metroNIDAZOLE 500 MG TAB PO ×3 (05:57→20:55)
[2018-03-31] MEDS: PANTOPRAZOLE (EC) 40 MG TAB PO ×2 (05:57→17:58)
[2018-03-31 06:06] LABS: ANION GAP 10 (5-13); BLOOD UREA NITROGEN 28 mg/dl (7-20); CALCIUM 8.9 mg/dl (8.4-10.2); CARBON DIOXIDE 24 mmol/L (21-31); CHLORIDE 104 mmol/L (97-110); CREATININE 1.79 mg/dl (0.61-1.24); GLUCOSE 129 mg/dl (70-220); POTASSIUM 3.9 mmol/L (3.5-5.1); SODIUM 138 mmol/L (135-144)
[2018-03-31] MEDS: INSULIN ASPART [NOVOLOG] 3 ML PEN SC ×4 (09:12→20:53)
[2018-03-31] MEDS: ASPIRIN (EC) 81 MG TAB PO (09:22)
[2018-03-31] MEDS: FERROUS SULFATE (EC) 325 MG TAB PO (09:22)
[2018-03-31] MEDS: LISINOPRIL 5 MG TAB PO (09:23)
[2018-03-31] MEDS: ALLOPURINOL 100 MG TAB PO (09:23)
[2018-03-31] MEDS: POLYETHYLENE GLYCOL 17 GM PACKET PO (09:39)
[2018-03-31] MEDS: LEVOTHYROXINE 175 MCG TAB PO (09:39)
[2018-03-31] MEDS: GLIMEPIRIDE 2 MG TAB PO (09:39)
[2018-03-31] MEDS: FUROSEMIDE 20 MG TAB PO (09:40)
[2018-03-31] MEDS: CYANOCOBALAMIN 500 MCG TAB PO (13:08)
[2018-03-31] MEDS: SOD CHLORIDE 0.45% 1,000 ML IV (17:17)
[2018-03-31] MEDS: LAMOTRIGINE 25 MG TAB PO (20:53)
[2018-03-31] MEDS: ATORVASTATIN 80 MG TAB PO (20:53)
[2018-04-01] MEDS: ACCU-CHEK XX (02:00)
[2018-04-01 05:58] LABS: ANION GAP 9 (5-13); BLOOD UREA NITROGEN 30 mg/dl (7-20); CALCIUM 9.1 mg/dl (8.4-10.2); CARBON DIOXIDE 25 mmol/L (21-31); CHLORIDE 106 mmol/L (97-110); CREATININE 1.66 mg/dl (0.61-1.24); GLUCOSE 84 mg/dl (70-220); SODIUM 140 mmol/L (135-144)
[2018-04-01] MEDS: LEVOTHYROXINE 175 MCG TAB PO (06:32)
[2018-04-01] MEDS: metroNIDAZOLE 500 MG TAB PO (06:32)
[2018-04-01] MEDS: PANTOPRAZOLE (EC) 40 MG TAB PO (06:32)
[2018-04-01] MEDS: INSULIN ASPART [NOVOLOG] 3 ML PEN SC (07:50)
[2018-04-01] MEDS: CYANOCOBALAMIN 500 MCG TAB PO (08:52)
[2018-04-01] MEDS: GLIMEPIRIDE 2 MG TAB PO (08:52)
[2018-04-01] MEDS: LAMOTRIGINE 25 MG TAB PO (08:52)
[2018-04-01] MEDS: ASPIRIN (EC) 81 MG TAB PO (08:52)
[2018-04-01] MEDS: FERROUS SULFATE (EC) 325 MG TAB PO (08:53)
[2018-04-01] MEDS: LISINOPRIL 5 MG TAB PO (08:54)
[2018-04-01] MEDS: POLYETHYLENE GLYCOL 17 GM PACKET PO (08:54)
[2018-04-01] MEDS: ALLOPURINOL 100 MG TAB PO (08:55)
== END 2018-04-01 12:29 | disposition home or self-care (01) | DRG 802 ==
LOC: TEL 03-22 16:30 → MS1 03-31 03:40 → E/R 07:43 → TEL 09:26
PROC: 0Q933ZX Drainage of Left Pelvic Bone, Percutaneous Approach, Diagnostic (ICD-10-PCS; principal; 2018-03-25 13:55)
PROC: 07DR3ZX Extraction of Iliac Bone Marrow, Percutaneous Approach, Diagnostic (ICD-10-PCS; 2018-03-25 13:55)
PROC: 0DJD8ZZ Inspection of Lower Intestinal Tract, Via Natural or Artificial Opening Endoscopic (ICD-10-PCS; 2018-03-25 13:55)
PROC: 0DB68ZX Excision of Stomach, Via Natural or Artificial Opening Endoscopic, Diagnostic (ICD-10-PCS; 2018-03-25 13:55)
PROC: 30233N1 Transfusion of Nonautologous Red Blood Cells into Peripheral Vein, Percutaneous Approach (ICD-10-PCS; 2018-03-25 13:55)
DX: D50.9 Iron deficiency anemia, unspecified (principal); I50.23 Acute on chronic systolic (congestive) heart failure; K29.01 Acute gastritis with bleeding; I47.2 Ventricular tachycardia; A04.72 Enterocolitis due to Clostridium difficile, not specified as recurrent; N17.9 Acute kidney failure, unspecified; I13.0 Hypertensive heart and chronic kidney disease with heart failure and stage 1 through stage 4 chronic kidney disease, or unspecified chronic kidney disease; I25.5 Ischemic cardiomyopathy; D62 Acute posthemorrhagic anemia; D46.9 Myelodysplastic syndrome, unspecified; E11.40 Type 2 diabetes mellitus with diabetic neuropathy, unspecified; I25.10 Atherosclerotic heart disease of native coronary artery without angina pectoris; J44.9 Chronic obstructive pulmonary disease, unspecified; E03.9 Hypothyroidism, unspecified; E78.5 Hyperlipidemia, unspecified; F17.200 Nicotine dependence, unspecified, uncomplicated; E11.51 Type 2 diabetes mellitus with diabetic peripheral angiopathy without gangrene; K44.9 Diaphragmatic hernia without obstruction or gangrene; I25.2 Old myocardial infarction; E66.9 Obesity, unspecified; G30.9 Alzheimer's disease, unspecified; F02.80 Dementia in other diseases classified elsewhere, unspecified severity, without behavioral disturbance, psychotic disturbance, mood disturbance, and anxiety; D69.6 Thrombocytopenia, unspecified; D51.9 Vitamin B12 deficiency anemia, unspecified; D63.1 Anemia in chronic kidney disease; I95.9 Hypotension, unspecified; G40.909 Epilepsy, unspecified, not intractable, without status epilepticus; N18.3 Chronic kidney disease, stage 3 (moderate); E11.21 Type 2 diabetes mellitus with diabetic nephropathy; E79.0 Hyperuricemia without signs of inflammatory arthritis and tophaceous disease; K59.00 Constipation, unspecified; Z79.01 Long term (current) use of anticoagulants; Z82.49 Family history of ischemic heart disease and other diseases of the circulatory system; Z95.5 Presence of coronary angioplasty implant and graft; Z95.810 Presence of automatic (implantable) cardiac defibrillator; Z95.2 Presence of prosthetic heart valve; Z86.718 Personal history of other venous thrombosis and embolism; Z86.73 Personal history of transient ischemic attack (TIA), and cerebral infarction without residual deficits
CPT/HCPCS: 36415; 36430; 77012; 80048; 80053; 81001; 81003; 82550; 82553; 82570; 82607; 82668; 82728; 82746; 82962; 83010; 83540; 83615; 83735; 84155; 84165; 84300; 84443; 84466; 84484; 84560; 85025; 85045; 85610; 85730; 86850; 86900; 86901; 86920; 87075; 88305; 88311; 88313; 89190; 90686; 93005; 93306; 97161; 97164; 99285-25; G0378

== ENCOUNTER 2018-10-31 11:29 | Inpatient (IN) | payer MEDICARE, OTHER ==
[2018-10-31] MEDS: SOD CHLORIDE 0.9% 250 ML IV ×2 (12:08→12:45)
[2018-10-31 12:20] LABS: ADD MAN DIFF? NO
[2018-10-31 12:25] LABS: BASOPHILS % 0.4 % (0.0-2.0); EOSINOPHILS # 0.3 10^3/ul (0.0-0.5); EOSINOPHILS % 2.7 % (0.0-7.0); HEMATOCRIT 39.4 % (42.0-52.0); HEMOGLOBIN 12.4 g/dl (14.0-18.0); LYMPHOCYTES # 1.6 10^3/ul (0.8-2.9); LYMPHOCYTES % 15.6 % (15.0-51.0); MEAN CORPUSCULAR HEMOGLOBIN 29.2 pg (29.0-33.0); MEAN CORPUSCULAR HGB CONC 31.5 g/dl (32.0-37.0); MEAN CORPUSCULAR VOLUME 92.9 fl (82.0-101.0); MEAN PLATELET VOLUME 10.1 fl (7.4-10.4); MONOCYTE # 0.7 10^3/ul (0.3-0.9); MONOCYTES % 6.9 % (0.0-11.0); NEUTROPHIL # 7.4 10^3/ul (1.6-7.5); PLATELET COUNT 241 10^3/UL (140-415); RED BLOOD COUNT 4.24 10^6/ul (4.70-6.10); RED CELL DISTRIBUTION WIDTH 14.1 % (11.5-14.5)
[2018-10-31 12:44] LABS: INR 0.97
[2018-10-31 12:45] LABS: ALANINE AMINOTRANSFERASE 11 IU/L (13-69); ALBUMIN/GLOBULIN RATIO 1.21; ALKALINE PHOSPHATASE 63 IU/L (42-121); ANION GAP 9 (5-13); ASPARTATE AMINO TRANSFERASE 17 IU/L (15-46); BILIRUBIN,INDIRECT 0.6 mg/dl (0-1.1); BILIRUBIN,TOTAL 0.6 mg/dl (0.2-1.3); BLOOD UREA NITROGEN 35 mg/dl (7-20); CALCIUM 9.5 mg/dl (8.4-10.2); CARBON DIOXIDE 24 mmol/L (21-31); CHLORIDE 107 mmol/L (97-110); CREATININE 2.05 mg/dl (0.61-1.24); GLUCOSE 140 mg/dl (70-220); MAGNESIUM 2.3 mg/dl (1.7-2.5); PARTIAL THROMBOPLASTIN TIME 33.2 Sec (23.0-35.0); POTASSIUM 4.3 mmol/L (3.5-5.1); SODIUM 140 mmol/L (135-144); TOTAL PROTEIN 7.3 g/dl (6.1-8.1)
[2018-10-31 12:55] LABS: TROPONIN-I 0.059 ng/ml (0.000-0.120)
[2018-10-31 13:00] LABS: DIGOXIN 1.5 ng/ml (1.0-2.0)
[2018-10-31 18:39] LABS: CREATINE KINASE 51 IU/L (23-200)
[2018-10-31 18:53] LABS: CK INDEX 3.4; CK-MB 1.74 ng/ml (0.0-2.4); TROPONIN-I 0.051 ng/ml (0.000-0.120)
[2018-10-31] MEDS ORDERED: GLUCOSE GEL 15 GRAM TUBE BUCCAL (19:30)
[2018-10-31] MEDS ORDERED: GLUCOSE GEL 15 GRAM TUBE PO ×2 (19:30)
[2018-10-31] MEDS ORDERED: GLUCAGON 1 MG INJ IM (19:30)
[2018-10-31] MEDS ORDERED: DEXTROSE 50% 50 ML SYRINGE IV ×2 (19:30)
[2018-10-31] MEDS: LEVALBUTEROL (NEB) 0.63 MG/3 ML AMP HHN ×2 (20:28→20:29)
[2018-10-31] MEDS: ATORVASTATIN 80 MG TAB PO (21:05)
[2018-11-01 01:24] LABS: CREATINE KINASE 50 IU/L (23-200)
[2018-11-01 01:35] LABS: CK INDEX 3.4; CK-MB 1.71 ng/ml (0.0-2.4); TROPONIN-I 0.062 ng/ml (0.000-0.120)
[2018-11-01] MEDS: LEVALBUTEROL (NEB) 0.63 MG/3 ML AMP HHN ×4 (01:39→20:50)
[2018-11-01] MEDS: LEVOTHYROXINE 150 MCG TAB PO (06:24)
[2018-11-01 07:42] LABS: URIC ACID 7.4 mg/dl (3.1-7.9)
[2018-11-01 07:42] LABS: CREATINE KINASE 48 IU/L (23-200)
[2018-11-01] MEDS: INSULIN ASPART [NOVOLOG] 3 ML PEN SC ×4 (07:56→20:55)
[2018-11-01] MEDS: FUROSEMIDE 20 MG TAB PO (08:13)
[2018-11-01] MEDS: GLIMEPIRIDE 2 MG TAB PO (08:13)
[2018-11-01] MEDS: ARIPIPRAZOLE 5 MG TAB PO (08:13)
[2018-11-01] MEDS: CYANOCOBALAMIN 500 MCG TAB PO (08:13)
[2018-11-01] MEDS: ASPIRIN (EC) 81 MG TAB PO (08:14)
[2018-11-01] MEDS: ALLOPURINOL 100 MG TAB PO (08:14)
[2018-11-01] MEDS: PANTOPRAZOLE (EC) 40 MG TAB PO (08:14)
[2018-11-01] MEDS: ACETAMINOPHEN 500 MG TAB PO (08:15)
[2018-11-01 10:53] LABS: SODIUM,URINE RANDOM 156 mmol/L (30-90)
[2018-11-01 10:55] LABS: CREATININE,URINE RANDOM 93.71 mg/dl (20-370); PROTEIN/CREAT RATIO 0.11 RATIO
[2018-11-01] MEDS: TAMSULOSIN (SR) 0.4 MG CAP PO (11:32)
[2018-11-01] MEDS: DIGOXIN 0.125 MG TAB PO (12:17)
[2018-11-01 12:22] LABS: ANION GAP 7 (5-13); BLOOD UREA NITROGEN 29 mg/dl (7-20); CALCIUM 9.6 mg/dl (8.4-10.2); CARBON DIOXIDE 27 mmol/L (21-31); CHLORIDE 105 mmol/L (97-110); GLUCOSE 168 mg/dl (70-220); POTASSIUM 4.2 mmol/L (3.5-5.1); SODIUM 139 mmol/L (135-144)
[2018-11-01] MEDS: ATORVASTATIN 80 MG TAB PO (20:56)
[2018-11-02] MEDS: LEVALBUTEROL (NEB) 0.63 MG/3 ML AMP HHN ×4 (01:36→19:23)
[2018-11-02 07:25] LABS: ADD MAN DIFF? NO
[2018-11-02 07:28] LABS: BASOPHILS % 0.3 % (0.0-2.0); EOSINOPHILS # 0.2 10^3/ul (0.0-0.5); EOSINOPHILS % 1.6 % (0.0-7.0); HEMATOCRIT 37.4 % (42.0-52.0); HEMOGLOBIN 11.9 g/dl (14.0-18.0); LYMPHOCYTES # 1.3 10^3/ul (0.8-2.9); LYMPHOCYTES % 12.9 % (15.0-51.0); MEAN CORPUSCULAR HEMOGLOBIN 28.8 pg (29.0-33.0); MEAN CORPUSCULAR HGB CONC 31.8 g/dl (32.0-37.0); MEAN CORPUSCULAR VOLUME 90.6 fl (82.0-101.0); MEAN PLATELET VOLUME 10.2 fl (7.4-10.4); MONOCYTE # 0.7 10^3/ul (0.3-0.9); MONOCYTES % 6.7 % (0.0-11.0); NEUTROPHIL # 7.8 10^3/ul (1.6-7.5); NEUTROPHILS % 78.1 % (39.0-77.0); PLATELET COUNT 205 10^3/UL (140-415); RED BLOOD COUNT 4.13 10^6/ul (4.70-6.10)
[2018-11-02 07:48] LABS: INR 1.02; PROTIME 13.5 Sec (11.9-14.9); PT RATIO 1.1
[2018-11-02 07:53] LABS: ALANINE AMINOTRANSFERASE 14 IU/L (13-69); ALBUMIN 3.8 g/dl (3.3-4.9); ALBUMIN/GLOBULIN RATIO 1.26; ALKALINE PHOSPHATASE 74 IU/L (42-121); ANION GAP 8 (5-13); ASPARTATE AMINO TRANSFERASE 18 IU/L (15-46); BILIRUBIN,INDIRECT 0.6 mg/dl (0-1.1); BILIRUBIN,TOTAL 0.6 mg/dl (0.2-1.3); BLOOD UREA NITROGEN 27 mg/dl (7-20); CALCIUM 10.1 mg/dl (8.4-10.2); CARBON DIOXIDE 27 mmol/L (21-31); CHLORIDE 103 mmol/L (97-110); CREATININE 1.77 mg/dl (0.61-1.24); GLUCOSE 113 mg/dl (70-220); POTASSIUM 4.5 mmol/L (3.5-5.1); SODIUM 138 mmol/L (135-144); TOTAL PROTEIN 6.8 g/dl (6.1-8.1)
[2018-11-02] MEDS: INSULIN ASPART [NOVOLOG] 3 ML PEN SC ×4 (07:55→21:00)
[2018-11-02] MEDS: GLIMEPIRIDE 2 MG TAB PO (07:59)
[2018-11-02] MEDS: LEVOTHYROXINE 150 MCG TAB PO (07:59)
[2018-11-02 08:02] LABS: T3 UPTAKE 35.2 % (23.5-40.5)
[2018-11-02 08:15] LABS: PROSTATE SPECIFIC ANTIGEN 0.8 ng/ml (0.0-4.0)
[2018-11-02] MEDS: TAMSULOSIN (SR) 0.4 MG CAP PO (08:57)
[2018-11-02] MEDS: ARIPIPRAZOLE 5 MG TAB PO (08:57)
[2018-11-02] MEDS: ALLOPURINOL 100 MG TAB PO (08:57)
[2018-11-02] MEDS: PANTOPRAZOLE (EC) 40 MG TAB PO (08:57)
[2018-11-02] MEDS: ASPIRIN (EC) 81 MG TAB PO (08:57)
[2018-11-02] MEDS: CYANOCOBALAMIN 500 MCG TAB PO (08:57)
[2018-11-02] MEDS: ACETAMINOPHEN 500 MG TAB PO (08:58)
[2018-11-02] MEDS: FUROSEMIDE 20 MG TAB PO (08:58)
[2018-11-02] MEDS: DIGOXIN 0.125 MG TAB PO (12:25)
[2018-11-02 17:34] LABS: FREE THYROXINE INDEX (Calc) 4.61 ug/ml (0.65-3.89); T4 (THYROXINE) 13.1 ug/dl (5.5-11.0)
[2018-11-02] MEDS: FUROSEMIDE 20 MG INJ IV (17:42)
[2018-11-02 18:33] LABS: THYROID STIMULATING HORMONE 0.331 MIU/L (0.465-4.680)
[2018-11-02] MEDS: ATORVASTATIN 80 MG TAB PO (21:03)
[2018-11-03] MEDS: LEVALBUTEROL (NEB) 0.63 MG/3 ML AMP HHN ×4 (02:16→19:48)
[2018-11-03] MEDS: LEVOTHYROXINE 150 MCG TAB PO (06:50)
[2018-11-03] MEDS: FUROSEMIDE 20 MG INJ IV ×2 (06:50→17:16)
[2018-11-03 07:28] LABS: ANION GAP 10 (5-13); BLOOD UREA NITROGEN 32 mg/dl (7-20); CALCIUM 10.1 mg/dl (8.4-10.2); CARBON DIOXIDE 28 mmol/L (21-31); CHLORIDE 101 mmol/L (97-110); CREATININE 1.74 mg/dl (0.61-1.24); GLUCOSE 120 mg/dl (70-220); POTASSIUM 4.3 mmol/L (3.5-5.1); SODIUM 139 mmol/L (135-144)
[2018-11-03] MEDS: GLIMEPIRIDE 2 MG TAB PO (07:51)
[2018-11-03] MEDS: INSULIN ASPART [NOVOLOG] 3 ML PEN SC ×4 (07:53→20:39)
[2018-11-03] MEDS: ARIPIPRAZOLE 5 MG TAB PO (09:45)
[2018-11-03] MEDS: TAMSULOSIN (SR) 0.4 MG CAP PO (09:45)
[2018-11-03] MEDS: ALLOPURINOL 100 MG TAB PO (09:45)
[2018-11-03] MEDS: ASPIRIN (EC) 81 MG TAB PO (09:47)
[2018-11-03] MEDS: PANTOPRAZOLE (EC) 40 MG TAB PO (09:47)
[2018-11-03] MEDS: CYANOCOBALAMIN 500 MCG TAB PO (09:47)
[2018-11-03] MEDS: ACETAMINOPHEN 500 MG TAB PO (09:47)
[2018-11-03] MEDS: DIGOXIN 0.125 MG TAB PO (12:37)
[2018-11-03] MEDS: ATORVASTATIN 80 MG TAB PO (20:35)
[2018-11-04] MEDS: LEVALBUTEROL (NEB) 0.63 MG/3 ML AMP HHN ×4 (01:14→21:18)
[2018-11-04] MEDS: LEVOTHYROXINE 125 MCG TAB PO (05:06)
[2018-11-04] MEDS: FUROSEMIDE 20 MG INJ IV ×2 (05:06→17:28)
[2018-11-04 06:48] LABS: ADD MAN DIFF? NO
[2018-11-04 06:49] LABS: BASOPHILS % 0.3 % (0.0-2.0); EOSINOPHILS # 0.2 10^3/ul (0.0-0.5); EOSINOPHILS % 1.6 % (0.0-7.0); HEMOGLOBIN 12.3 g/dl (14.0-18.0); LYMPHOCYTES # 1.5 10^3/ul (0.8-2.9); LYMPHOCYTES % 15.5 % (15.0-51.0); MEAN CORPUSCULAR HEMOGLOBIN 28.9 pg (29.0-33.0); MEAN CORPUSCULAR HGB CONC 32.4 g/dl (32.0-37.0); MEAN CORPUSCULAR VOLUME 89.2 fl (82.0-101.0); MEAN PLATELET VOLUME 10.3 fl (7.4-10.4); MONOCYTE # 0.7 10^3/ul (0.3-0.9); NEUTROPHILS % 75.2 % (39.0-77.0); PLATELET COUNT 218 10^3/UL (140-415); RED BLOOD COUNT 4.26 10^6/ul (4.70-6.10); RED CELL DISTRIBUTION WIDTH 14.1 % (11.5-14.5)
[2018-11-04 06:49] LABS: WHITE BLOOD COUNT 9.4 10^3/ul (4.8-10.8)
[2018-11-04 07:08] LABS: ANION GAP 11 (5-13); BLOOD UREA NITROGEN 42 mg/dl (7-20); CALCIUM 10.1 mg/dl (8.4-10.2); CARBON DIOXIDE 28 mmol/L (21-31); CHLORIDE 99 mmol/L (97-110); CREATININE 2.05 mg/dl (0.61-1.24); GLUCOSE 120 mg/dl (70-220); POTASSIUM 4.4 mmol/L (3.5-5.1); SODIUM 138 mmol/L (135-144)
[2018-11-04] MEDS: GLIMEPIRIDE 2 MG TAB PO (07:55)
[2018-11-04] MEDS: INSULIN ASPART [NOVOLOG] 3 ML PEN SC ×4 (07:55→20:33)
[2018-11-04] MEDS: ALLOPURINOL 100 MG TAB PO (09:15)
[2018-11-04] MEDS: ACETAMINOPHEN 500 MG TAB PO (09:15)
[2018-11-04] MEDS: ARIPIPRAZOLE 5 MG TAB PO (09:15)
[2018-11-04] MEDS: PANTOPRAZOLE (EC) 40 MG TAB PO (09:15)
[2018-11-04] MEDS: ASPIRIN (EC) 81 MG TAB PO (09:15)
[2018-11-04] MEDS: TAMSULOSIN (SR) 0.4 MG CAP PO (09:15)
[2018-11-04] MEDS: CYANOCOBALAMIN 500 MCG TAB PO (09:15)
[2018-11-04] MEDS: SOD CHLORIDE 0.9% 1,000 ML IV ×2 (09:46→22:20)
[2018-11-04] MEDS: ATORVASTATIN 80 MG TAB PO (20:33)
[2018-11-05] MEDS: LEVALBUTEROL (NEB) 0.63 MG/3 ML AMP HHN ×4 (01:39→20:23)
[2018-11-05] MEDS: LEVOTHYROXINE 125 MCG TAB PO (05:25)
[2018-11-05] MEDS: FUROSEMIDE 20 MG INJ IV ×2 (05:26→17:44)
[2018-11-05 07:18] LABS: ANION GAP 10 (5-13); BLOOD UREA NITROGEN 42 mg/dl (7-20); CALCIUM 9.5 mg/dl (8.4-10.2); CARBON DIOXIDE 27 mmol/L (21-31); CHLORIDE 98 mmol/L (97-110); CREATININE 1.93 mg/dl (0.61-1.24); GLUCOSE 99 mg/dl (70-220); SODIUM 135 mmol/L (135-144)
[2018-11-05] MEDS: INSULIN ASPART [NOVOLOG] 3 ML PEN SC ×4 (07:55→20:40)
[2018-11-05] MEDS: GLIMEPIRIDE 2 MG TAB PO (08:22)
[2018-11-05] MEDS: TAMSULOSIN (SR) 0.4 MG CAP PO (08:23)
[2018-11-05] MEDS: ASPIRIN (EC) 81 MG TAB PO (08:23)
[2018-11-05] MEDS: PANTOPRAZOLE (EC) 40 MG TAB PO (08:23)
[2018-11-05] MEDS: CYANOCOBALAMIN 500 MCG TAB PO (08:23)
[2018-11-05] MEDS: ALLOPURINOL 100 MG TAB PO (08:23)
[2018-11-05] MEDS: ARIPIPRAZOLE 5 MG TAB PO (08:23)
[2018-11-05] MEDS: ACETAMINOPHEN 500 MG TAB PO (08:24)
[2018-11-05] MEDS: SOD CHLORIDE 0.9% 1,000 ML IV (11:40)
[2018-11-05] MEDS ORDERED: BISACODYL (EC) 5 MG TAB PO (14:30)
[2018-11-05] MEDS: ATORVASTATIN 80 MG TAB PO (20:37)
[2018-11-05] MEDS: DOCUSATE SODIUM 100 MG CAP PO (20:37)
[2018-11-06] MEDS: SOD CHLORIDE 0.9% 1,000 ML IV (00:58)
[2018-11-06] MEDS: LEVALBUTEROL (NEB) 0.63 MG/3 ML AMP HHN ×4 (01:20→19:34)
[2018-11-06] MEDS: LEVOTHYROXINE 125 MCG TAB PO (05:25)
[2018-11-06] MEDS: FUROSEMIDE 20 MG INJ IV ×2 (05:25→17:41)
[2018-11-06 07:08] LABS: ANION GAP 8 (5-13); BLOOD UREA NITROGEN 35 mg/dl (7-20); CALCIUM 9.5 mg/dl (8.4-10.2); CARBON DIOXIDE 26 mmol/L (21-31); CHLORIDE 101 mmol/L (97-110); CREATININE 1.69 mg/dl (0.61-1.24); GLUCOSE 91 mg/dl (70-220); POTASSIUM 3.9 mmol/L (3.5-5.1); SODIUM 135 mmol/L (135-144)
[2018-11-06] MEDS: INSULIN ASPART [NOVOLOG] 3 ML PEN SC ×4 (07:53→20:14)
[2018-11-06] MEDS: ASPIRIN (EC) 81 MG TAB PO (08:33)
[2018-11-06] MEDS: ACETAMINOPHEN 500 MG TAB PO (08:33)
[2018-11-06] MEDS: PANTOPRAZOLE (EC) 40 MG TAB PO (08:34)
[2018-11-06] MEDS: TAMSULOSIN (SR) 0.4 MG CAP PO (08:34)
[2018-11-06] MEDS: DOCUSATE SODIUM 100 MG CAP PO ×2 (08:34→20:09)
[2018-11-06] MEDS: CYANOCOBALAMIN 500 MCG TAB PO (08:34)
[2018-11-06] MEDS: ARIPIPRAZOLE 5 MG TAB PO (08:34)
[2018-11-06] MEDS: GLIMEPIRIDE 2 MG TAB PO (08:34)
[2018-11-06] MEDS: ALLOPURINOL 100 MG TAB PO (08:35)
[2018-11-06] MEDS: ATORVASTATIN 80 MG TAB PO (20:09)
[2018-11-07] MEDS: LEVALBUTEROL (NEB) 0.63 MG/3 ML AMP HHN ×4 (01:16→20:03)
[2018-11-07] MEDS: FUROSEMIDE 20 MG INJ IV ×2 (06:11→17:40)
[2018-11-07] MEDS: LEVOTHYROXINE 125 MCG TAB PO (06:12)
[2018-11-07] MEDS: INSULIN ASPART [NOVOLOG] 3 ML PEN SC ×4 (07:55→21:00)
[2018-11-07] MEDS: PANTOPRAZOLE (EC) 40 MG TAB PO (08:50)
[2018-11-07] MEDS: ALLOPURINOL 100 MG TAB PO (08:50)
[2018-11-07] MEDS: CYANOCOBALAMIN 500 MCG TAB PO (08:50)
[2018-11-07] MEDS: ARIPIPRAZOLE 5 MG TAB PO (08:50)
[2018-11-07] MEDS: ASPIRIN (EC) 81 MG TAB PO (08:50)
[2018-11-07] MEDS: DOCUSATE SODIUM 100 MG CAP PO ×2 (08:50→21:13)
[2018-11-07] MEDS: ACETAMINOPHEN 500 MG TAB PO (08:51)
[2018-11-07] MEDS: TAMSULOSIN (SR) 0.4 MG CAP PO (08:51)
[2018-11-07] MEDS: GLIMEPIRIDE 2 MG TAB PO (08:55)
[2018-11-07] MEDS: ATORVASTATIN 80 MG TAB PO (21:13)
[2018-11-08] MEDS: LEVALBUTEROL (NEB) 0.63 MG/3 ML AMP HHN ×4 (01:17→19:56)
[2018-11-08] MEDS: FUROSEMIDE 20 MG INJ IV ×2 (06:06→18:26)
[2018-11-08] MEDS: LEVOTHYROXINE 125 MCG TAB PO (06:07)
[2018-11-08] MEDS: INSULIN ASPART [NOVOLOG] 3 ML PEN SC ×4 (07:55→21:00)
[2018-11-08] MEDS: TAMSULOSIN (SR) 0.4 MG CAP PO (08:15)
[2018-11-08] MEDS: ARIPIPRAZOLE 5 MG TAB PO (08:15)
[2018-11-08] MEDS: CYANOCOBALAMIN 500 MCG TAB PO (08:15)
[2018-11-08] MEDS: ACETAMINOPHEN 500 MG TAB PO (08:15)
[2018-11-08] MEDS: ASPIRIN (EC) 81 MG TAB PO (08:15)
[2018-11-08] MEDS: PANTOPRAZOLE (EC) 40 MG TAB PO (08:15)
[2018-11-08] MEDS: DOCUSATE SODIUM 100 MG CAP PO ×2 (08:15→21:15)
[2018-11-08] MEDS: ALLOPURINOL 100 MG TAB PO (08:15)
[2018-11-08] MEDS: GLIMEPIRIDE 2 MG TAB PO (08:16)
[2018-11-08] MEDS: ATORVASTATIN 80 MG TAB PO (21:15)
[2018-11-09] MEDS: LEVALBUTEROL (NEB) 0.63 MG/3 ML AMP HHN ×4 (02:01→20:21)
[2018-11-09] MEDS: LEVOTHYROXINE 125 MCG TAB PO (06:12)
[2018-11-09] MEDS: FUROSEMIDE 20 MG INJ IV (06:13)
[2018-11-09] MEDS: INSULIN ASPART [NOVOLOG] 3 ML PEN SC ×4 (07:55→21:00)
[2018-11-09] MEDS: ARIPIPRAZOLE 5 MG TAB PO (08:07)
[2018-11-09] MEDS: PANTOPRAZOLE (EC) 40 MG TAB PO (08:07)
[2018-11-09] MEDS: ALLOPURINOL 100 MG TAB PO (08:07)
[2018-11-09] MEDS: GLIMEPIRIDE 2 MG TAB PO (08:07)
[2018-11-09] MEDS: DOCUSATE SODIUM 100 MG CAP PO ×2 (08:08→21:32)
[2018-11-09] MEDS: ASPIRIN (EC) 81 MG TAB PO (08:08)
[2018-11-09] MEDS: CYANOCOBALAMIN 500 MCG TAB PO (08:08)
[2018-11-09] MEDS: ACETAMINOPHEN 500 MG TAB PO (08:08)
[2018-11-09] MEDS: TAMSULOSIN (SR) 0.4 MG CAP PO (08:08)
[2018-11-09] MEDS: FUROSEMIDE 20 MG TAB PO (17:46)
[2018-11-09] MEDS: ATORVASTATIN 80 MG TAB PO (21:32)
[2018-11-10] MEDS: LEVALBUTEROL (NEB) 0.63 MG/3 ML AMP HHN (02:02)
[2018-11-10] MEDS: FUROSEMIDE 20 MG TAB PO ×2 (06:44→18:08)
[2018-11-10] MEDS: LEVOTHYROXINE 125 MCG TAB PO (06:44)
[2018-11-10 06:50] LABS: ADD MAN DIFF? NO
[2018-11-10 06:59] LABS: BASOPHILS % 0.3 % (0.0-2.0); EOSINOPHILS # 0.1 10^3/ul (0.0-0.5); EOSINOPHILS % 1.3 % (0.0-7.0); HEMATOCRIT 38.7 % (42.0-52.0); HEMOGLOBIN 12.3 g/dl (14.0-18.0); LYMPHOCYTES # 1.4 10^3/ul (0.8-2.9); LYMPHOCYTES % 12.8 % (15.0-51.0); MEAN CORPUSCULAR HEMOGLOBIN 28.6 pg (29.0-33.0); MEAN CORPUSCULAR HGB CONC 31.8 g/dl (32.0-37.0); MEAN PLATELET VOLUME 10.4 fl (7.4-10.4); MONOCYTE # 0.9 10^3/ul (0.3-0.9); MONOCYTES % 8.1 % (0.0-11.0); NEUTROPHIL # 8.2 10^3/ul (1.6-7.5); PLATELET COUNT 204 10^3/UL (140-415); RED CELL DISTRIBUTION WIDTH 14.2 % (11.5-14.5)
[2018-11-10 06:59] LABS: WHITE BLOOD COUNT 10.7 10^3/ul (4.8-10.8)
[2018-11-10 07:23] LABS: MAGNESIUM 2.1 mg/dl (1.7-2.5)
[2018-11-10 07:25] LABS: ANION GAP 11 (5-13); BLOOD UREA NITROGEN 43 mg/dl (7-20); CALCIUM 9.5 mg/dl (8.4-10.2); CARBON DIOXIDE 29 mmol/L (21-31); CHLORIDE 97 mmol/L (97-110); CREATININE 1.65 mg/dl (0.61-1.24); GLUCOSE 88 mg/dl (70-220); POTASSIUM 3.8 mmol/L (3.5-5.1); SODIUM 137 mmol/L (135-144)
[2018-11-10] MEDS: INSULIN ASPART [NOVOLOG] 3 ML PEN SC ×3 (07:55→17:55)
[2018-11-10] MEDS: DOCUSATE SODIUM 100 MG CAP PO (08:19)
[2018-11-10] MEDS: GLIMEPIRIDE 2 MG TAB PO (08:19)
[2018-11-10] MEDS: ARIPIPRAZOLE 5 MG TAB PO (08:19)
[2018-11-10] MEDS: TAMSULOSIN (SR) 0.4 MG CAP PO (08:19)
[2018-11-10] MEDS: ASPIRIN (EC) 81 MG TAB PO (08:20)
[2018-11-10] MEDS: CYANOCOBALAMIN 500 MCG TAB PO (08:20)
[2018-11-10] MEDS: ALLOPURINOL 100 MG TAB PO (08:20)
[2018-11-10] MEDS: PANTOPRAZOLE (EC) 40 MG TAB PO (08:20)
[2018-11-10] MEDS: ACETAMINOPHEN 500 MG TAB PO (08:20)
== END 2018-11-10 18:26 | disposition home or self-care (01) | DRG 291 ==
LOC: E/R 11:29 → TEL 14:48
DX: I13.0 Hypertensive heart and chronic kidney disease with heart failure and stage 1 through stage 4 chronic kidney disease, or unspecified chronic kidney disease (principal); I50.23 Acute on chronic systolic (congestive) heart failure; N17.9 Acute kidney failure, unspecified; I25.5 Ischemic cardiomyopathy; I48.91 Unspecified atrial fibrillation; D63.1 Anemia in chronic kidney disease; E87.70 Fluid overload, unspecified; E11.22 Type 2 diabetes mellitus with diabetic chronic kidney disease; E03.9 Hypothyroidism, unspecified; E78.5 Hyperlipidemia, unspecified; E11.21 Type 2 diabetes mellitus with diabetic nephropathy; F17.200 Nicotine dependence, unspecified, uncomplicated; I25.10 Atherosclerotic heart disease of native coronary artery without angina pectoris; J44.9 Chronic obstructive pulmonary disease, unspecified; N18.3 Chronic kidney disease, stage 3 (moderate); N40.0 Benign prostatic hyperplasia without lower urinary tract symptoms; Z95.810 Presence of automatic (implantable) cardiac defibrillator; Z95.2 Presence of prosthetic heart valve; Z86.73 Personal history of transient ischemic attack (TIA), and cerebral infarction without residual deficits; Z95.5 Presence of coronary angioplasty implant and graft; Z79.84 Long term (current) use of oral hypoglycemic drugs; Z79.82 Long term (current) use of aspirin
CPT/HCPCS: 36415; 70450; 71045; 76775; 80048; 80053; 80162; 81003; 82550; 82553; 82570; 82962; 83735; 84153; 84154; 84300; 84436; 84443; 84479; 84484; 84560; 85025; 85610; 85730; 89190; 93005; 94640; 94664; 97116; 97162; 97530; 99285-25; G0378

== ENCOUNTER 2018-11-16 17:40 | Inpatient (IN) | payer MEDICARE, OTHER ==
[2018-11-16 18:02] LABS: ADD MAN DIFF? NO
[2018-11-16 18:08] LABS: BASOPHILS % 0.2 % (0.0-2.0); HEMATOCRIT 34.4 % (42.0-52.0); HEMOGLOBIN 11.1 g/dl (14.0-18.0); LYMPHOCYTES # 0.7 10^3/ul (0.8-2.9); LYMPHOCYTES % 5.6 % (15.0-51.0); MEAN CORPUSCULAR HEMOGLOBIN 28.8 pg (29.0-33.0); MEAN CORPUSCULAR HGB CONC 32.3 g/dl (32.0-37.0); MEAN CORPUSCULAR VOLUME 89.4 fl (82.0-101.0); MEAN PLATELET VOLUME 9.5 fl (7.4-10.4); MONOCYTE # 0.4 10^3/ul (0.3-0.9); MONOCYTES % 3.6 % (0.0-11.0); NEUTROPHIL # 10.5 10^3/ul (1.6-7.5); NEUTROPHILS % 90.3 % (39.0-77.0); PLATELET COUNT 234 10^3/UL (140-415); RED BLOOD COUNT 3.85 10^6/ul (4.70-6.10); RED CELL DISTRIBUTION WIDTH 14.1 % (11.5-14.5)
[2018-11-16 18:08] LABS: WHITE BLOOD COUNT 11.7 10^3/ul (4.8-10.8)
[2018-11-16 18:27] LABS: INR 1.01; PROTIME 13.4 Sec (11.9-14.9)
[2018-11-16 18:28] LABS: PARTIAL THROMBOPLASTIN TIME 34.1 Sec (23.0-35.0)
[2018-11-16 18:37] LABS: ANION GAP 8 (5-13); BLOOD UREA NITROGEN 52 mg/dl (7-20); CALCIUM 9.4 mg/dl (8.4-10.2); CARBON DIOXIDE 28 mmol/L (21-31); CHLORIDE 101 mmol/L (97-110); CREATININE 2.36 mg/dl (0.61-1.24); GLUCOSE 161 mg/dl (70-220); POTASSIUM 4.6 mmol/L (3.5-5.1); SODIUM 137 mmol/L (135-144)
[2018-11-16 18:40] LABS: DIGOXIN 0.6 ng/ml (1.0-2.0)
[2018-11-16 18:49] LABS: TROPONIN-I 0.061 ng/ml (0.000-0.120)
[2018-11-16] MEDS: SOD CHLORIDE 0.9% 500 ML IV (19:54)
[2018-11-16 21:09] LABS: URINE PH (Dip) POC 5.5 (5.0-8.5)
[2018-11-16 21:09] LABS: URINE BLOOD (Dip) POC Negative (NEGATIVE); URINE GLUCOSE (Dip) POC Negative (NEGATIVE); URINE KETONES (Dip) POC Negative (NEGATIVE); URINE LEUKOCYTE EST (Dip) POC Negative (NEGATIVE); URINE NITRITE (Dip) POC Negative (NEGATIVE); URINE TOTAL PROTEIN POC Trace (NEGATIVE)
[2018-11-16] MEDS ORDERED: ACETAMINOPHEN 325 MG TAB PO (21:30)
[2018-11-16] MEDS ORDERED: NACL 0.9% 3 ML SYG IV (21:30)
[2018-11-16] MEDS ORDERED: morphine 2 MG INJ IV (21:30)
[2018-11-16] MEDS ORDERED: ONDANSETRON 4 MG INJ IV (21:30)
[2018-11-16] MEDS: SOD CHLORIDE 0.9% 1,000 ML IV (22:43)
[2018-11-17] MEDS ORDERED: DEXTROSE 50% 50 ML SYRINGE IV ×2 (02:30)
[2018-11-17] MEDS ORDERED: GLUCOSE GEL 15 GRAM TUBE BUCCAL (02:30)
[2018-11-17] MEDS ORDERED: GLUCAGON 1 MG INJ IM (02:30)
[2018-11-17] MEDS ORDERED: GLUCOSE GEL 15 GRAM TUBE PO ×2 (02:30)
[2018-11-17 05:41] LABS: ADD MAN DIFF? NO
[2018-11-17 05:45] LABS: BASOPHILS % 0.1 % (0.0-2.0); EOSINOPHILS # 0.1 10^3/ul (0.0-0.5); EOSINOPHILS % 1.6 % (0.0-7.0); HEMATOCRIT 30.3 % (42.0-52.0); HEMOGLOBIN 9.8 g/dl (14.0-18.0); LYMPHOCYTES # 1.7 10^3/ul (0.8-2.9); LYMPHOCYTES % 20.5 % (15.0-51.0); MEAN CORPUSCULAR HEMOGLOBIN 29.3 pg (29.0-33.0); MEAN CORPUSCULAR HGB CONC 32.3 g/dl (32.0-37.0); MEAN CORPUSCULAR VOLUME 90.4 fl (82.0-101.0); MEAN PLATELET VOLUME 9.9 fl (7.4-10.4); MONOCYTE # 0.7 10^3/ul (0.3-0.9); MONOCYTES % 8.1 % (0.0-11.0); NEUTROPHIL # 5.6 10^3/ul (1.6-7.5); NEUTROPHILS % 69.1 % (39.0-77.0); PLATELET COUNT 188 10^3/UL (140-415); RED BLOOD COUNT 3.35 10^6/ul (4.70-6.10); RED CELL DISTRIBUTION WIDTH 14.1 % (11.5-14.5)
[2018-11-17 05:45] LABS: WHITE BLOOD COUNT 8.1 10^3/ul (4.8-10.8)
[2018-11-17] MEDS: LEVOTHYROXINE 150 MCG TAB PO (06:03)
[2018-11-17 06:13] LABS: ALANINE AMINOTRANSFERASE 29 IU/L (13-69); ALKALINE PHOSPHATASE 61 IU/L (42-121); ANION GAP 5 (5-13); ASPARTATE AMINO TRANSFERASE 16 IU/L (15-46); BILIRUBIN,INDIRECT 0.4 mg/dl (0-1.1); BILIRUBIN,TOTAL 0.4 mg/dl (0.2-1.3); BLOOD UREA NITROGEN 41 mg/dl (7-20); CALCIUM 8.9 mg/dl (8.4-10.2); CARBON DIOXIDE 28 mmol/L (21-31); CHLORIDE 105 mmol/L (97-110); CREATININE 1.94 mg/dl (0.61-1.24); GLUCOSE 97 mg/dl (70-220); POTASSIUM 3.9 mmol/L (3.5-5.1); SODIUM 138 mmol/L (135-144); TOTAL PROTEIN 6.3 g/dl (6.1-8.1)
[2018-11-17] MEDS ORDERED: PANTOPRAZOLE (EC) 40 MG TAB PO (07:00)
[2018-11-17] MEDS: SOD CHLORIDE 0.9% 1,000 ML IV ×2 (07:06→18:54)
[2018-11-17 07:10] LABS: HEMOGLOBIN A1C 6.5 % (0-5.9)
[2018-11-17] MEDS: INSULIN ASPART [NOVOLOG] 3 ML PEN SC ×4 (07:58→21:00)
[2018-11-17] MEDS: ACCU-CHEK XX ×4 (07:58→21:32)
[2018-11-17] MEDS ORDERED: GLIMEPIRIDE 2 MG TAB PO (08:00)
[2018-11-17] MEDS: DIGOXIN 0.125 MG TAB PO (09:00)
[2018-11-17] MEDS ORDERED: NON-FORMULARY/PATIENT OWN MED (Cyanocobalamin (Vitamin B-12) (Vitamin B-12) 1,000 MCG) PO (09:00)
[2018-11-17] MEDS: ARIPIPRAZOLE 5 MG TAB PO (09:15)
[2018-11-17] MEDS: CYANOCOBALAMIN 500 MCG TAB PO (09:15)
[2018-11-17] MEDS: ALLOPURINOL 100 MG TAB PO (09:15)
[2018-11-17] MEDS: LAMOTRIGINE 100 MG TAB PO ×2 (09:15→21:36)
[2018-11-17] MEDS: LISINOPRIL 5 MG TAB PO (09:17)
[2018-11-17] MEDS: FAMOTIDINE 20 MG TAB PO (09:22)
[2018-11-17] MEDS: FUROSEMIDE 20 MG TAB PO (09:26)
[2018-11-17] MEDS: ENOXAPARIN 30 MG/0.3 ML SYG SC (09:55)
[2018-11-17 19:13] LABS: CREATINE KINASE 51 IU/L (23-200)
[2018-11-17 19:25] LABS: CK INDEX 3.2; CK-MB 1.65 ng/ml (0.0-2.4)
[2018-11-17] MEDS: ATORVASTATIN 80 MG TAB PO (21:36)
[2018-11-18 01:11] LABS: CREATINE KINASE 54 IU/L (23-200)
[2018-11-18 01:24] LABS: CK INDEX 3.2; CK-MB 1.74 ng/ml (0.0-2.4); TROPONIN-I 0.052 ng/ml (0.000-0.120)
[2018-11-18] MEDS: ACCU-CHEK XX ×5 (01:24→20:21)
[2018-11-18] MEDS: SOD CHLORIDE 0.9% 1,000 ML IV ×3 (02:21→22:17)
[2018-11-18] MEDS: LEVOTHYROXINE 150 MCG TAB PO (06:08)
[2018-11-18 06:12] LABS: CHOLESTEROL 104 mg/dl (100-200)
[2018-11-18 06:12] LABS: CHOL/HDL RATIO 5.4 RATIO; HDL CHOLESTEROL 19 mg/dl (31-75); LDL CHOLESTEROL,CALCULATED 55 mg/dl; TRIGLYCERIDES 148 mg/dl (0-149)
[2018-11-18 06:17] LABS: CREATINE KINASE 52 IU/L (23-200)
[2018-11-18 06:21] LABS: CK INDEX 3.2; CK-MB 1.68 ng/ml (0.0-2.4); TROPONIN-I 0.056 ng/ml (0.000-0.120)
[2018-11-18] MEDS: INSULIN ASPART [NOVOLOG] 3 ML PEN SC ×4 (07:35→20:21)
[2018-11-18] MEDS: DIGOXIN 0.125 MG TAB PO (09:00)
[2018-11-18] MEDS: LISINOPRIL 5 MG TAB PO (09:00)
[2018-11-18] MEDS: ARIPIPRAZOLE 5 MG TAB PO (09:36)
[2018-11-18] MEDS: ALLOPURINOL 100 MG TAB PO (09:36)
[2018-11-18] MEDS: CYANOCOBALAMIN 500 MCG TAB PO (09:37)
[2018-11-18] MEDS: LAMOTRIGINE 100 MG TAB PO ×2 (09:37→20:21)
[2018-11-18] MEDS: FAMOTIDINE 20 MG TAB PO (09:37)
[2018-11-18] MEDS: FUROSEMIDE 20 MG TAB PO (09:39)
[2018-11-18] MEDS: ENOXAPARIN 30 MG/0.3 ML SYG SC (09:52)
[2018-11-18] MEDS: ATORVASTATIN 80 MG TAB PO (20:21)
[2018-11-19] MEDS: ACCU-CHEK XX ×5 (01:37→21:51)
[2018-11-19] MEDS: LEVOTHYROXINE 150 MCG TAB PO (06:17)
[2018-11-19] MEDS: INSULIN ASPART [NOVOLOG] 3 ML PEN SC ×4 (08:00→21:00)
[2018-11-19] MEDS: LISINOPRIL 5 MG TAB PO (09:00)
[2018-11-19] MEDS: FUROSEMIDE 20 MG TAB PO (09:00)
[2018-11-19] MEDS: SOD CHLORIDE 0.9% 1,000 ML IV ×2 (09:11→18:43)
[2018-11-19] MEDS: LAMOTRIGINE 100 MG TAB PO ×2 (09:48→21:47)
[2018-11-19] MEDS: ALLOPURINOL 100 MG TAB PO (09:48)
[2018-11-19] MEDS: ARIPIPRAZOLE 5 MG TAB PO (09:48)
[2018-11-19] MEDS: CYANOCOBALAMIN 500 MCG TAB PO (09:48)
[2018-11-19] MEDS: FAMOTIDINE 20 MG TAB PO (09:48)
[2018-11-19] MEDS: DIGOXIN 0.125 MG TAB PO (09:49)
[2018-11-19] MEDS: ENOXAPARIN 30 MG/0.3 ML SYG SC (10:11)
[2018-11-19] MEDS: SOD CHLORIDE 0.9% 500 ML IV (11:15)
[2018-11-19] MEDS: ATORVASTATIN 80 MG TAB PO (21:47)
[2018-11-20] MEDS: ACCU-CHEK XX ×5 (02:00→20:40)
[2018-11-20] MEDS: LEVOTHYROXINE 150 MCG TAB PO (07:45)
[2018-11-20] MEDS: INSULIN ASPART [NOVOLOG] 3 ML PEN SC ×4 (07:46→20:40)
[2018-11-20] MEDS: LAMOTRIGINE 100 MG TAB PO ×2 (08:09→20:43)
[2018-11-20] MEDS: LISINOPRIL 5 MG TAB PO (08:09)
[2018-11-20] MEDS: FUROSEMIDE 20 MG TAB PO (08:09)
[2018-11-20] MEDS: ALLOPURINOL 100 MG TAB PO (08:10)
[2018-11-20] MEDS: ARIPIPRAZOLE 5 MG TAB PO (08:10)
[2018-11-20] MEDS: FAMOTIDINE 20 MG TAB PO (08:10)
[2018-11-20] MEDS: CYANOCOBALAMIN 500 MCG TAB PO (08:10)
[2018-11-20] MEDS: DIGOXIN 0.125 MG TAB PO (08:11)
[2018-11-20] MEDS: ENOXAPARIN 30 MG/0.3 ML SYG SC (08:17)
[2018-11-20] MEDS: DOCUSATE SODIUM 100 MG CAP PO (20:39)
[2018-11-20] MEDS: ATORVASTATIN 80 MG TAB PO (20:39)
[2018-11-20] MEDS: SOD CHLORIDE 0.9% 1,000 ML IV (22:42)
[2018-11-21] MEDS: ACCU-CHEK XX ×5 (02:21→20:16)
[2018-11-21 05:40] LABS: ADD MAN DIFF? NO
[2018-11-21 06:02] LABS: BASOPHILS % 0.3 % (0.0-2.0); EOSINOPHILS # 0.2 10^3/ul (0.0-0.5); EOSINOPHILS % 1.7 % (0.0-7.0); HEMATOCRIT 33.1 % (42.0-52.0); HEMOGLOBIN 10.5 g/dl (14.0-18.0); LYMPHOCYTES # 1.7 10^3/ul (0.8-2.9); LYMPHOCYTES % 17.5 % (15.0-51.0); MEAN CORPUSCULAR HEMOGLOBIN 29.1 pg (29.0-33.0); MEAN CORPUSCULAR HGB CONC 31.7 g/dl (32.0-37.0); MEAN CORPUSCULAR VOLUME 91.7 fl (82.0-101.0); MONOCYTE # 0.7 10^3/ul (0.3-0.9); MONOCYTES % 7.2 % (0.0-11.0); NEUTROPHIL # 7.2 10^3/ul (1.6-7.5); NEUTROPHILS % 72.9 % (39.0-77.0); PLATELET COUNT 196 10^3/UL (140-415); RED BLOOD COUNT 3.61 10^6/ul (4.70-6.10); RED CELL DISTRIBUTION WIDTH 14.4 % (11.5-14.5)
[2018-11-21 06:02] LABS: WHITE BLOOD COUNT 9.9 10^3/ul (4.8-10.8)
[2018-11-21] MEDS: LEVOTHYROXINE 150 MCG TAB PO (06:08)
[2018-11-21] MEDS: BISACODYL (EC) 5 MG TAB PO (06:08)
[2018-11-21 06:23] LABS: ALANINE AMINOTRANSFERASE 27 IU/L (13-69); ALBUMIN 3.1 g/dl (3.3-4.9); ALBUMIN/GLOBULIN RATIO 0.96; ALKALINE PHOSPHATASE 61 IU/L (42-121); ANION GAP 6 (5-13); ASPARTATE AMINO TRANSFERASE 17 IU/L (15-46); BILIRUBIN,INDIRECT 0.4 mg/dl (0-1.1); BILIRUBIN,TOTAL 0.4 mg/dl (0.2-1.3); BLOOD UREA NITROGEN 21 mg/dl (7-20); CALCIUM 9.2 mg/dl (8.4-10.2); CARBON DIOXIDE 29 mmol/L (21-31); CHLORIDE 103 mmol/L (97-110); CREATININE 1.78 mg/dl (0.61-1.24); GLUCOSE 89 mg/dl (70-220); POTASSIUM 4.3 mmol/L (3.5-5.1); SODIUM 138 mmol/L (135-144); TOTAL PROTEIN 6.3 g/dl (6.1-8.1)
[2018-11-21] MEDS: INSULIN ASPART [NOVOLOG] 3 ML PEN SC ×4 (07:47→20:15)
[2018-11-21 08:07] LABS: MAGNESIUM 1.8 mg/dl (1.7-2.5)
[2018-11-21] MEDS: DIGOXIN 0.125 MG TAB PO (08:54)
[2018-11-21] MEDS: LISINOPRIL 5 MG TAB PO (08:54)
[2018-11-21] MEDS: FUROSEMIDE 20 MG TAB PO (08:55)
[2018-11-21] MEDS: DOCUSATE SODIUM 100 MG CAP PO ×2 (09:05→20:15)
[2018-11-21] MEDS: ARIPIPRAZOLE 5 MG TAB PO (09:05)
[2018-11-21] MEDS: FAMOTIDINE 20 MG TAB PO (09:05)
[2018-11-21] MEDS: ALLOPURINOL 100 MG TAB PO (09:05)
[2018-11-21] MEDS: LAMOTRIGINE 100 MG TAB PO ×2 (09:05→20:15)
[2018-11-21] MEDS: CYANOCOBALAMIN 500 MCG TAB PO (09:06)
[2018-11-21] MEDS: ENOXAPARIN 30 MG/0.3 ML SYG SC (09:07)
[2018-11-21] MEDS: MAGNESIUM SULFATE 2 GM/50 ML 50 ML IVPB (10:10)
[2018-11-21] MEDS: POLYETHYLENE GLYCOL 17 GM PACKET PO (13:39)
[2018-11-21] MEDS: SOD CHLORIDE 0.9% 1,000 ML IV (18:30)
[2018-11-21] MEDS: ATORVASTATIN 80 MG TAB PO (20:15)
[2018-11-22] MEDS: ACCU-CHEK XX ×5 (02:00→20:04)
[2018-11-22] MEDS: LEVOTHYROXINE 150 MCG TAB PO (05:58)
[2018-11-22 06:12] LABS: ADD MAN DIFF? NO
[2018-11-22 06:15] LABS: WHITE BLOOD COUNT 10.1 10^3/ul (4.8-10.8)
[2018-11-22 06:15] LABS: BASOPHILS % 0.2 % (0.0-2.0); EOSINOPHILS # 0.2 10^3/ul (0.0-0.5); HEMOGLOBIN 10.3 g/dl (14.0-18.0); LYMPHOCYTES # 1.5 10^3/ul (0.8-2.9); LYMPHOCYTES % 14.5 % (15.0-51.0); MEAN CORPUSCULAR HEMOGLOBIN 28.9 pg (29.0-33.0); MEAN CORPUSCULAR HGB CONC 31.2 g/dl (32.0-37.0); MEAN CORPUSCULAR VOLUME 92.4 fl (82.0-101.0); MEAN PLATELET VOLUME 10.2 fl (7.4-10.4); MONOCYTE # 0.7 10^3/ul (0.3-0.9); MONOCYTES % 6.4 % (0.0-11.0); NEUTROPHIL # 7.7 10^3/ul (1.6-7.5); NEUTROPHILS % 76.5 % (39.0-77.0); PLATELET COUNT 200 10^3/UL (140-415); RED BLOOD COUNT 3.57 10^6/ul (4.70-6.10); RED CELL DISTRIBUTION WIDTH 14.4 % (11.5-14.5)
[2018-11-22 07:05] LABS: ANION GAP 6 (5-13); BLOOD UREA NITROGEN 18 mg/dl (7-20); CARBON DIOXIDE 28 mmol/L (21-31); CHLORIDE 102 mmol/L (97-110); CREATININE 1.63 mg/dl (0.61-1.24); GLUCOSE 94 mg/dl (70-220); POTASSIUM 4.2 mmol/L (3.5-5.1); SODIUM 136 mmol/L (135-144)
[2018-11-22] MEDS: INSULIN ASPART [NOVOLOG] 3 ML PEN SC ×4 (08:00→20:04)
[2018-11-22] MEDS: DOCUSATE SODIUM 100 MG CAP PO ×2 (09:00→20:11)
[2018-11-22] MEDS: POLYETHYLENE GLYCOL 17 GM PACKET PO (09:00)
[2018-11-22] MEDS: ALLOPURINOL 100 MG TAB PO (09:08)
[2018-11-22] MEDS: LAMOTRIGINE 100 MG TAB PO ×2 (09:09→20:11)
[2018-11-22] MEDS: ARIPIPRAZOLE 5 MG TAB PO (09:09)
[2018-11-22] MEDS: LISINOPRIL 5 MG TAB PO (09:09)
[2018-11-22] MEDS: FUROSEMIDE 20 MG TAB PO (09:10)
[2018-11-22] MEDS: FAMOTIDINE 20 MG TAB PO (09:11)
[2018-11-22] MEDS: CYANOCOBALAMIN 500 MCG TAB PO (09:11)
[2018-11-22] MEDS: ENOXAPARIN 30 MG/0.3 ML SYG SC (09:23)
[2018-11-22] MEDS: DIGOXIN 0.125 MG TAB PO (09:26)
[2018-11-22] MEDS: SOD CHLORIDE 0.9% 1,000 ML IV (15:46)
[2018-11-22] MEDS: ATORVASTATIN 80 MG TAB PO (20:11)
[2018-11-22] MEDS ORDERED: POLYETHYLENE GLYCOL 17 GM PACKET PO (21:00)
[2018-11-23] MEDS: ACCU-CHEK XX ×5 (02:00→20:49)
[2018-11-23] MEDS: LEVOTHYROXINE 150 MCG TAB PO (06:04)
[2018-11-23 07:00] LABS: ANION GAP 6 (5-13); BLOOD UREA NITROGEN 19 mg/dl (7-20); CALCIUM 9.2 mg/dl (8.4-10.2); CARBON DIOXIDE 28 mmol/L (21-31); CHLORIDE 104 mmol/L (97-110); CREATININE 1.61 mg/dl (0.61-1.24); GLUCOSE 96 mg/dl (70-220); MAGNESIUM 2.2 mg/dl (1.7-2.5); POTASSIUM 4.5 mmol/L (3.5-5.1); SODIUM 138 mmol/L (135-144)
[2018-11-23] MEDS: INSULIN ASPART [NOVOLOG] 3 ML PEN SC ×4 (08:00→20:48)
[2018-11-23] MEDS: LAMOTRIGINE 100 MG TAB PO ×2 (08:39→20:49)
[2018-11-23] MEDS: ALLOPURINOL 100 MG TAB PO (08:41)
[2018-11-23] MEDS: FUROSEMIDE 20 MG TAB PO (08:41)
[2018-11-23] MEDS: DOCUSATE SODIUM 100 MG CAP PO ×2 (08:41→20:48)
[2018-11-23] MEDS: ARIPIPRAZOLE 5 MG TAB PO (08:41)
[2018-11-23] MEDS: FAMOTIDINE 20 MG TAB PO (08:42)
[2018-11-23] MEDS: DIGOXIN 0.125 MG TAB PO (08:42)
[2018-11-23] MEDS: LISINOPRIL 5 MG TAB PO (08:42)
[2018-11-23] MEDS: CYANOCOBALAMIN 500 MCG TAB PO (08:42)
[2018-11-23] MEDS: ENOXAPARIN 30 MG/0.3 ML SYG SC (08:51)
[2018-11-23] MEDS: SOD CHLORIDE 0.9% 1,000 ML IV (11:54)
[2018-11-23] MEDS: ATORVASTATIN 80 MG TAB PO (20:49)
[2018-11-24] MEDS: ACCU-CHEK XX ×5 (02:00→21:00)
[2018-11-24 07:11] LABS: ANION GAP 8 (5-13); BLOOD UREA NITROGEN 19 mg/dl (7-20); CALCIUM 9.5 mg/dl (8.4-10.2); CARBON DIOXIDE 27 mmol/L (21-31); CHLORIDE 102 mmol/L (97-110); CREATININE 1.67 mg/dl (0.61-1.24); GLUCOSE 97 mg/dl (70-220); POTASSIUM 4.2 mmol/L (3.5-5.1); SODIUM 137 mmol/L (135-144)
[2018-11-24] MEDS: LEVOTHYROXINE 150 MCG TAB PO (07:40)
[2018-11-24] MEDS: INSULIN ASPART [NOVOLOG] 3 ML PEN SC ×4 (07:41→21:00)
[2018-11-24] MEDS: ALLOPURINOL 100 MG TAB PO (08:55)
[2018-11-24] MEDS: CYANOCOBALAMIN 500 MCG TAB PO (08:55)
[2018-11-24] MEDS: FAMOTIDINE 20 MG TAB PO (08:55)
[2018-11-24] MEDS: LAMOTRIGINE 100 MG TAB PO ×2 (08:55→21:15)
[2018-11-24] MEDS: DOCUSATE SODIUM 100 MG CAP PO ×2 (08:55→21:15)
[2018-11-24] MEDS: ARIPIPRAZOLE 5 MG TAB PO (08:55)
[2018-11-24] MEDS: DIGOXIN 0.125 MG TAB PO (08:57)
[2018-11-24] MEDS: LISINOPRIL 5 MG TAB PO (08:57)
[2018-11-24] MEDS: FUROSEMIDE 20 MG TAB PO (09:04)
[2018-11-24] MEDS: ENOXAPARIN 30 MG/0.3 ML SYG SC (09:11)
[2018-11-24] MEDS: ATORVASTATIN 80 MG TAB PO (21:15)
[2018-11-25] MEDS: ACCU-CHEK XX ×5 (02:00→21:00)
[2018-11-25] MEDS: LEVOTHYROXINE 150 MCG TAB PO (06:25)
[2018-11-25 07:22] LABS: ANION GAP 8 (5-13); BLOOD UREA NITROGEN 21 mg/dl (7-20); CALCIUM 8.9 mg/dl (8.4-10.2); CARBON DIOXIDE 27 mmol/L (21-31); CHLORIDE 102 mmol/L (97-110); GLUCOSE 104 mg/dl (70-220); POTASSIUM 4.3 mmol/L (3.5-5.1); SODIUM 137 mmol/L (135-144)
[2018-11-25] MEDS: INSULIN ASPART [NOVOLOG] 3 ML PEN SC ×4 (07:47→20:59)
[2018-11-25] MEDS: DOCUSATE SODIUM 100 MG CAP PO ×2 (08:26→20:58)
[2018-11-25] MEDS: LAMOTRIGINE 100 MG TAB PO ×2 (08:27→20:58)
[2018-11-25] MEDS: CYANOCOBALAMIN 500 MCG TAB PO (08:27)
[2018-11-25] MEDS: ALLOPURINOL 100 MG TAB PO (08:27)
[2018-11-25] MEDS: FAMOTIDINE 20 MG TAB PO (08:27)
[2018-11-25] MEDS: ARIPIPRAZOLE 5 MG TAB PO (08:27)
[2018-11-25] MEDS: LISINOPRIL 5 MG TAB PO (08:29)
[2018-11-25] MEDS: FUROSEMIDE 20 MG TAB PO (08:29)
[2018-11-25] MEDS: ENOXAPARIN 30 MG/0.3 ML SYG SC (08:36)
[2018-11-25] MEDS: REGADENOSON 0.4 MG/5 ML SYG (11:50)
[2018-11-25] MEDS: DIGOXIN 0.125 MG TAB PO (13:22)
[2018-11-25] MEDS: ATORVASTATIN 80 MG TAB PO (20:58)
[2018-11-26] MEDS: ACCU-CHEK XX ×4 (02:00→17:20)
[2018-11-26 06:22] LABS: ANION GAP 6 (5-13); BLOOD UREA NITROGEN 25 mg/dl (7-20); CALCIUM 8.7 mg/dl (8.4-10.2); CARBON DIOXIDE 28 mmol/L (21-31); CHLORIDE 101 mmol/L (97-110); CREATININE 1.98 mg/dl (0.61-1.24); GLUCOSE 99 mg/dl (70-220); MAGNESIUM 2.1 mg/dl (1.7-2.5); POTASSIUM 3.8 mmol/L (3.5-5.1); SODIUM 135 mmol/L (135-144)
[2018-11-26] MEDS: LEVOTHYROXINE 150 MCG TAB PO (06:30)
[2018-11-26] MEDS: INSULIN ASPART [NOVOLOG] 3 ML PEN SC ×3 (07:57→17:20)
[2018-11-26] MEDS: DOCUSATE SODIUM 100 MG CAP PO (08:34)
[2018-11-26] MEDS: FAMOTIDINE 20 MG TAB PO (08:34)
[2018-11-26] MEDS: LISINOPRIL 5 MG TAB PO (08:34)
[2018-11-26] MEDS: FUROSEMIDE 20 MG TAB PO (08:34)
[2018-11-26] MEDS: LAMOTRIGINE 100 MG TAB PO (08:34)
[2018-11-26] MEDS: CYANOCOBALAMIN 500 MCG TAB PO (08:35)
[2018-11-26] MEDS: ARIPIPRAZOLE 5 MG TAB PO (08:36)
[2018-11-26] MEDS: ALLOPURINOL 100 MG TAB PO (08:36)
[2018-11-26] MEDS: ENOXAPARIN 30 MG/0.3 ML SYG SC (08:41)
[2018-11-26] MEDS: DIGOXIN 0.125 MG TAB PO (12:58)
== END 2018-11-26 18:29 | DRG 314 ==
LOC: 6WM 11-25 20:26 → E/R 17:40 → 6WM 20:53
DX: T82.198A Other mechanical complication of other cardiac electronic device, initial encounter (principal); I50.23 Acute on chronic systolic (congestive) heart failure; N17.9 Acute kidney failure, unspecified; I13.0 Hypertensive heart and chronic kidney disease with heart failure and stage 1 through stage 4 chronic kidney disease, or unspecified chronic kidney disease; E86.0 Dehydration; E11.8 Type 2 diabetes mellitus with unspecified complications; J44.9 Chronic obstructive pulmonary disease, unspecified; E11.22 Type 2 diabetes mellitus with diabetic chronic kidney disease; I25.5 Ischemic cardiomyopathy; N18.3 Chronic kidney disease, stage 3 (moderate); E78.5 Hyperlipidemia, unspecified; F17.200 Nicotine dependence, unspecified, uncomplicated; I25.10 Atherosclerotic heart disease of native coronary artery without angina pectoris; E03.9 Hypothyroidism, unspecified; F32.9 Major depressive disorder, single episode, unspecified; F41.9 Anxiety disorder, unspecified; R55 Syncope and collapse; Y71.0 Diagnostic and monitoring cardiovascular devices associated with adverse incidents; Y92.129 Unspecified place in nursing home as the place of occurrence of the external cause; Z79.4 Long term (current) use of insulin; Z95.810 Presence of automatic (implantable) cardiac defibrillator; Z95.5 Presence of coronary angioplasty implant and graft; Z86.73 Personal history of transient ischemic attack (TIA), and cerebral infarction without residual deficits
CPT/HCPCS: 36415; 70450; 71045; 78452; 80048; 80053; 80061; 80162; 81003; 82550; 82553; 82962; 83036; 83735; 84484; 85025; 85610; 85730; 93005; 93017; 93306; 97110; 97116; 97161; 97530; 99285-25

== ENCOUNTER 2018-12-14 17:34 | Emergency (ER) | payer MEDICARE, OTHER ==
[2018-12-14] MEDS: ACETAMINOPHEN 500 MG TAB PO (18:09)
[2018-12-14] MEDS: DIPHTH/TET/ACEL PERTUSS (ADULT) 0.5 ML VIAL IM* (18:10)
== END 2018-12-14 20:10 | disposition home or self-care (01) ==
LOC: E/R 17:34
DX: S00.01XA Abrasion of scalp, initial encounter (principal); J44.9 Chronic obstructive pulmonary disease, unspecified; R51 Headache; W01.0XXA Fall on same level from slipping, tripping and stumbling without subsequent striking against object, initial encounter; Y92.9 Unspecified place or not applicable; Z98.61 Coronary angioplasty status; Z87.891 Personal history of nicotine dependence; Z79.84 Long term (current) use of oral hypoglycemic drugs; Z23 Encounter for immunization
CPT/HCPCS: 70450; 90471; 90715; 99284-25